=== PATIENT | female | born 1930 | race Caucasian/White ===

== ENCOUNTER 2016-10-29 15:42 | Emergency (ER) | payer OTHER ==
--- NOTE | 2016-10-29 16:52 | PROVIDER DOCUMENTATION ---
HPI-Musculoskeletal Pain/Inj - GENERAL Source: family Unable to obtain history due to:: altered (due to dementia) - HX OF PRESENT ILLNESS-MUSKULOSKELTAL Quality of Pain: reports: dull Severity in ED: mild Onset/Duration: unsure, this morning Timing: still present, constant Modifying Factors: worse with: movement Locality of Occurance: Home Similar Symptoms Previously?: Yes Recently seen or treated by another doctor?: No - FALL INJURY Location of Pain/Injury: reports: pelvis Pain Radiation: reports: no radiation Reason for Fall: reports: unknown Symptoms prior to fall:: reports: none Loss of Consciousness: unsure Injury Associated Symptoms: reports: joint pain, trouble walking. denies: back/ neck pain, chest pain, dizziness, muscle aches, shortness of breath, snap/crack/ pop sensation <Sukhwinder Shannon - Last Filed: 10/29/16 16:48> <Payal Plata - Last Filed: 10/29/16 18:33> - GENERAL Chief Complaint: Fall Stated Complaint: FALL Time Seen by Provider: 10/29/16 16:34 - HX OF PRESENT ILLNESS-MUSKULOSKELTAL Nature of Presenting Problem: patient is a 86 y/o F that presents to the ER with pelvic pain after being found in the floor this am by family. 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 Patient denies any chest pain, shortness of breath, headache, or n/v/d. Patient was able to get up from wheelchair to bed. (Sukhwinder Shannon) Review of Systems - Adult - REVIEW OF SYSTEMS - ADULT ROS:: ROS per family Constitutional: denies: chills, fever Eyes: reports: no symptoms reported Ears, Nose, Mouth & Throat: denies: sinus problem, loose teeth, mouth/dental pain, throat pain, throat swelling Cardiovascular: denies: chest pain, palpitations, syncope Respiratory: denies: hemoptysis, shortness of breath, wheezing Gastrointestinal: denies: abdominal pain, nausea, vomiting Genitourinary: reports: no symptoms reported Musculoskeletal: reports: joint pain. denies: back pain, neck pain Integumentary: reports: no symptoms reported Neurological: denies: dizziness/vertigo, headache/migraines, seizure, syncope Psychiatric: reports: no symptoms reported Endocrine: reports: no symptoms reported Hematologic/Lymphatic: reports: no symptoms reported Allergic/Immunologic: reports: no symptoms reported All Other Systems: Reviewed and Negative <Sukhwinder Shannon - Last Filed: 10/29/16 16:48> Past History - Adult - PAST MEDICAL HISTORY-ADULT Review of Records: reports: Old Records Reviewed, Nursing Assessment Review, Medications Reviewed Cardiovascular: reports: A-Fib, HTN Gastrointestinal: reports: GERD Neurological: reports: stroke deficits (left arm weakness, left leg weakness), dementia. denies: headaches/migraines Endocrine/Immune: reports: thyroid disorder Other Conditions: reports: denies history - PRIOR SURGERIES/PROCEDURES Surgical/Procedure History: reports: appendectomy, cholecystectomy, hysterectomy , orthopedic (extremity) - PRIOR HOSPITALIZATIONS Prior Hospitalizations: reports: for other non-related - IMMUNIZATION STATUS Childhood Immunizations: See Nurse Assessment Flu Vaccine: See Nurse Assessment - FAMILY HISTORY Family History: reviewed, not pertinent, gallbladder disease - SOCIAL HISTORY Living Situation: family <Sukhwinder Shannon - Last Filed: 10/29/16 16:48> Physical Exam-Injury Related - Physical Exam-Injury Related Initial Vital Signs Reviewed: Yes General Appearance: alert, no apparent distress Eyes: PERRL/EOMI, pink conjunctivae Head, Ears, Nose, Mouth & Throat: normocephalic/atraumatic, moist mucous membranes, normal ENT inspection Neck: non-tender, full range of motion, normal inspection Respiratory: chest non-tender, lungs clear, normal breath sounds, no respiratory distress, no accessory muscle use Cardiovascular: regular rate, rhythm, no edema, no murmur Abdominal Exam: normal bowel sounds, non tender, soft, no organomegaly, no pulsatile mass Back Exam: no CVA tenderness, no vertebral tenderness Extremity: normal inspection, no pedal edema, no calf tenderness, normal capillary refill, pelvis stable Integumentary: normal color, warm/dry Neurologic: grossly normal, no motor/sensory deficits Psych/Mental Status: other (oriented to person, but not time,place, or president ). 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 No fx identified per Dr. Bernard, radiology) <Payal Plata - Last Filed: 10/29/16 18:33> - PLAN OF CARE/RESULTS Progress/Plan/Lab Results: Vital Signs Temp Pulse Resp BP Pulse Ox 10/29/16 15:51 99.5 F 84 16 148/062 99 codeine Allergy (Unknown, Verified 10/29/16 15:56) Unknown fish derived Adverse Reaction (Unknown, Verified 10/29/16 15:56) Unknown Donepezil [Aricept] 10 mg PO DAILY 12/19/14 Levothyroxine [Synthroid] 50 mcg PO DAILY 12/19/14 Memantine HCl [Namenda Xr] 28 mg PO DAILY 12/19/14 Pravastatin Sodium 80 mg PO QHS 12/19/14 Solifenacin Succinate [Vesicare] 10 mg PO DAILY 08/15/15 Montelukast Sodium 1 tab PO DAILY 10/19/15 Amlodipine Besylate [Norvasc] 2.5 mg PO DAILY #30 tablet 10/24/15 Apixaban [Eliquis] 5 mg PO BID #60 tablet 10/24/15 Esomeprazole [Nexium] 40 mg PO DAILY 12/31/15 Lactulose [Kristalose] 1 packet PO DAILY 12/31/15 Sotalol [Betapace] 40 mg PO BID 12/31/15 Oxycodone HCl/Acetaminophen [Percocet 5-325 mg Tablet] 1 each PO BID #10 tablet 03/22/16 Levofloxacin [Levaquin] 750 mg PO DAILY #10 tablet 05/25/16 Metronidazole 500 mg PO TID #30 tablet 05/25/16 Promethazine [Phenergan] 25 mg PO Q6H PRN PRN #20 tablet 05/25/16 Laboratory 10/29/16 10/29/16 10/29/16 17:55 17:55 17:21 WBC RBC Hgb Hct MCV MCH MCHC RDW Std Deviation Plt Count MPV Immature Gran % (Auto) Neut % (Auto) Lymph % (Auto) [place] % (Auto) Eos % (Auto) Baso % (Auto) Immature Gran # (Auto) Neut # (Auto) Lymph # (Auto) [place] # (Auto) Eos # (Auto) Baso # (Auto) PT INR APTT (Factor Assay) Specimen Type ARTERIAL Sample Site R RADIAL pH 7.49 H pCO2 26 L pO2 93 HCO3 23.3 Base Excess -2.0 Oxyhemoglobin 95.7 ABG O2 Sat (Calculated) 18.6 ABG O2 Saturation 99.2 ABG Carboxyhemoglobin 2.00 ABG Methemoglobin 1.5 Cristi Test YES A-a O2 Difference 24.0 Total Hemoglobin 13.8 Lactate 1.00 Blood Gas Modality ROOM AIR FiO2 % 21.0 Sodium Potassium Chloride Carbon Dioxide Anion Gap BUN Creatinine Estimated GFR/1.73 m2 BUN/Creatinine Ratio Glucose Calculated Osmolality Calcium Total Bilirubin AST ALT Alkaline Phosphatase Creatine Kinase Creatine Kinase Index CK-MB (CK-2) Troponin T Total Protein Albumin Globulin Albumin/Globulin Ratio Plasma Lactate Urine Source CLEAN CATCH Urine Color YELLOW Urine Clarity VERY CLOUDY A Urine pH 6.5 Ur Specific [place] 1.015 Urine Protein TRACE A Urine Ketones 1+(Small) A Urine Blood 3+ A Urine Nitrite POSITIVE A Urine Bilirubin NEGATIVE Urine Urobilinogen NORMAL Urine Microscopic RBC 10-20 A Urine WBC 2+ A Urine Microscopic WBC TNTC A Ur Epithelial Cells <10 Urine Crystals NONE SEEN Urine Bacteria 3+ Urine Casts NONE SEEN Urine Yeast NONE SEEN Urine Glucose NEGATIVE Urine Opiates Screen NONE DETECTED Ur Oxycodone Screen NONE DETECTED Urine Methadone Screen NONE DETECTED Ur Barbituates Screen NONE DETECTED Ur Tricyclics Screen NONE DETECTED Ur Phencyclidine Scrn NONE DETECTED Ur Amphetamines Screen NONE DETECTED U Methamphetamines Scrn NONE DETECTED Urine MDMA Screen NONE DETECTED U Benzodiazepines Scrn NONE DETECTED Urine Cocaine Screen NONE DETECTED U Cannabinoids Screen NONE DETECTED Plasma/Serum Ethyl Alc 10/29/16 10/29/16 10/29/16 16:56 16:56 16:56 WBC 10.61 RBC 4.85 Hgb 13.2 Hct 40.8 MCV 84.1 MCH 27.2 MCHC 32.4 L RDW Std Deviation 14.0 Plt Count 249 MPV 8.7 Immature Gran % (Auto) 0.3 Neut % (Auto) 65.1 Lymph % (Auto) 18.9 L [place] % (Auto) 14.1 H Eos % (Auto) 1.5 Baso % (Auto) 0.1 Immature Gran # (Auto) 0.03 Neut # (Auto) 6.91 H Lymph # (Auto) 2.00 [place] # (Auto) 1.50 H Eos # (Auto) 0.16 Baso # (Auto) 0.01 PT 14.6 INR 1.11 APTT (Factor Assay) 30.1 Specimen Type Sample Site pH pCO2 pO2 HCO3 Base Excess Oxyhemoglobin ABG O2 Sat (Calculated) ABG O2 Saturation ABG Carboxyhemoglobin ABG Methemoglobin Cristi Test A-a O2 Difference Total Hemoglobin Lactate Blood Gas Modality FiO2 % Sodium Potassium Chloride Carbon Dioxide Anion Gap BUN Creatinine Estimated GFR/1.73 m2 BUN/Creatinine Ratio Glucose Calculated Osmolality Calcium Total Bilirubin AST ALT Alkaline Phosphatase Creatine Kinase 516 H Creatine Kinase Index 0.5 CK-MB (CK-2) 2.38 Troponin T Total Protein Albumin Globulin Albumin/Globulin Ratio Plasma Lactate Urine Source Urine Color Urine Clarity Urine pH Ur Specific [place] Urine Protein Urine Ketones Urine Blood Urine Nitrite Urine Bilirubin Urine Urobilinogen Urine Microscopic RBC Urine WBC Urine Microscopic WBC Ur Epithelial Cells Urine Crystals Urine Bacteria Urine Casts Urine Yeast Urine Glucose Urine Opiates Screen Ur Oxycodone Screen Urine Methadone Screen Ur Barbituates Screen Ur Tricyclics Screen Ur Phencyclidine Scrn Ur Amphetamines Screen U Methamphetamines Scrn Urine MDMA Screen U Benzodiazepines Scrn Urine Cocaine Screen U Cannabinoids Screen Plasma/Serum Ethyl Alc 10/29/16 10/29/16 10/29/16 16:56 16:56 16:56 WBC RBC Hgb Hct MCV MCH MCHC RDW Std Deviation Plt Count MPV Immature Gran % (Auto) Neut % (Auto) Lymph % (Auto) [place] % (Auto) Eos % (Auto) Baso % (Auto) Immature Gran # (Auto) Neut # (Auto) Lymph # (Auto) [place] # (Auto) Eos # (Auto) Baso # (Auto) PT INR APTT (Factor Assay) Specimen Type Sample Site pH pCO2 pO2 HCO3 Base Excess Oxyhemoglobin ABG O2 Sat (Calculated) ABG O2 Saturation ABG Carboxyhemoglobin ABG Methemoglobin Cristi Test A-a O2 Difference Total Hemoglobin Lactate Blood Gas Modality FiO2 % Sodium Potassium Chloride Carbon Dioxide Anion Gap BUN Creatinine Estimated GFR/1.73 m2 BUN/Creatinine Ratio Glucose Calculated Osmolality Calcium Total Bilirubin AST ALT Alkaline Phosphatase Creatine Kinase Creatine Kinase Index CK-MB (CK-2) Troponin T < 0.010 Total Protein Albumin Globulin Albumin/Globulin Ratio Plasma Lactate 1.1 Urine Source Urine Color Urine Clarity Urine pH Ur Specific [place] Urine Protein Urine Ketones Urine Blood Urine Nitrite Urine Bilirubin Urine Urobilinogen Urine Microscopic RBC Urine WBC Urine Microscopic WBC Ur Epithelial Cells Urine Crystals Urine Bacteria Urine Casts Urine Yeast Urine Glucose Urine Opiates Screen Ur Oxycodone Screen Urine Methadone Screen Ur Barbituates Screen Ur Tricyclics Screen Ur Phencyclidine Scrn Ur Amphetamines Screen U Methamphetamines Scrn Urine MDMA Screen U Benzodiazepines Scrn Urine Cocaine Screen U Cannabinoids Screen Plasma/Serum Ethyl Alc 10/29/16 16:56 WBC RBC Hgb Hct MCV MCH MCHC RDW Std Deviation Plt Count MPV Immature Gran % (Auto) Neut % (Auto) Lymph % (Auto) [place] % (Auto) Eos % (Auto) Baso % (Auto) Immature Gran # (Auto) Neut # (Auto) Lymph # (Auto) [place] # (Auto) Eos # (Auto) Baso # (Auto) PT INR APTT (Factor Assay) Specimen Type Sample Site pH pCO2 pO2 HCO3 Base Excess Oxyhemoglobin ABG O2 Sat (Calculated) ABG O2 Saturation ABG Carboxyhemoglobin ABG Methemoglobin Cristi Test A-a O2 Difference Total Hemoglobin Lactate Blood Gas Modality FiO2 % Sodium 139 Potassium 3.5 Chloride 105 Carbon Dioxide 23 L Anion Gap 12 BUN 14 Creatinine 0.9 Estimated GFR/1.73 m2 60 BUN/Creatinine Ratio 16 Glucose 100 Calculated Osmolality 278 Calcium 9.3 Total Bilirubin 0.70 AST 22 ALT 9 L Alkaline Phosphatase 62 Creatine Kinase Creatine Kinase Index CK-MB (CK-2) Troponin T Total Protein 7.1 Albumin 3.9 Globulin 3.0 Albumin/Globulin Ratio 1.0 Plasma Lactate Urine Source Urine Color Urine Clarity Urine pH Ur Specific [place] Urine Protein Urine Ketones Urine Blood Urine Nitrite Urine Bilirubin Urine Urobilinogen Urine Microscopic RBC Urine WBC Urine Microscopic WBC Ur Epithelial Cells Urine Crystals Urine Bacteria Urine Casts Urine Yeast Urine Glucose Urine Opiates Screen Ur Oxycodone Screen Urine Methadone Screen Ur Barbituates Screen Ur Tricyclics Screen Ur Phencyclidine Scrn Ur Amphetamines Screen U Methamphetamines Scrn Urine MDMA Screen U Benzodiazepines Scrn Urine Cocaine Screen U Cannabinoids Screen Plasma/Serum Ethyl Alc Orders Category Date Time Status Cardiac Monitoring DIRECTED Care 10/29/16 16:44 Active Finger Stick Blood Sugar (ED) DIRECTED Care 10/29/16 16:44 Active Oxygen Therapy- ED Nursing DIRECTED Care 10/29/16 16:44 Active Saline Loc NOW Care 10/29/16 16:44 Active CHEST-PORTABLE [RAD] Stat Exams 10/29/16 16:44 Taken HEAD W/O CONTRAST [CT] Stat Exams 10/29/16 16:44 Taken PELVIS W/O CONTRAST [CT] Stat Exams 10/29/16 16:46 Taken ABG [RESP] Routine Lab 10/29/16 17:21 Completed ALCOHOL BLOOD Stat Lab 10/29/16 16:56 Completed BLOOD CULTURE [BLDCUL] Stat Lab 10/29/16 17:04 Ordered CBC WITH ELECTRONIC DIFF [HEME] Stat Lab 10/29/16 16:56 Completed CK PROFILE [SP CHEM] Stat Lab 10/29/16 16:56 Completed COMPREHENSIVE METABOLIC PANEL [CHEM] Stat Lab 10/29/16 16:56 Completed LACTATE, PLASMA [CHEM] Stat Lab 10/29/16 16:56 Completed PROTIME WITH INR PL [COAG] Stat Lab 10/29/16 16:[address] [COAG] Stat Lab 10/29/16 16:56 Completed TROPONIN T Stat Lab 10/29/16 16:[address] W/POSS RFLX CULT [URINALYSIS] Stat Lab 10/29/16 17:55 Completed URINE CULTURE [RM] Routine Lab 10/29/16 18:11 Ordered [address] DRUG SCREEN [address] Stat Lab 10/29/16 17:55 Completed Acetaminophen [Tylenol] Med 10/29/16 18:29 Discontinued 500 mg PO NOW ONE CefTRIAXONE 1 GM/NS [Rocephin 1 gm/Ns] 50 ml Med 10/29/16 18:13 Active IV NOW Pulse Oximetry Stat Oth 10/29/16 16:44 Active EKG [EKG] Stat Ther 10/29/16 16:44 Draft Discussed results with family member who she lives. with. patient has ambulated since being here. Sydnee family member prefers that she go home with her tonight, and not be admitted to the hospital. We will write orders or a walker, and have her follow up with the primary care physician. patient and daughter are in agreement. (Payal Plata) Departure <Sukhwinder Shannon - Last Filed: 10/29/16 16:48> - Departure Time of Disposition Order: 18:31 Certified Medical Emergency: Emergent <Payal Plata - Last Filed: 10/29/16 18:33> - Departure DIAGNOSIS: Acute UTI Fall Qualifiers: Encounter type: initial encounter Qualified Code(s): W19.XXXA - Unspecified fall, initial encounter Contusion of coccyx Qualifiers: Encounter type: initial encounter Qualified Code(s): S30.0XXA - Contusion of lower back and pelvis, initial encounter Disposition: HOME 01 Condition: Stable Additional Instructions: Follow up with you primary care physician this week. ED Follow Up Instructions: You have been treated by a care provider in the Emergency Department. These instructions are being provided to you so you can have an understanding of how to care for yourself upon discharge. Upon discharge from the Emergency Department, you are responsible for making arrangements for follow-up care by a physician of your choice. Take all prescribed medications as directed. Return to the Emergency Department immediately for any new or worsening symptoms. You may call the Physician Referral phone number at [phone] to obtain a list of Physicians who are taking new patients. Prescriptions: Nitrofurantoin [place]/Macrocryst [Macrobid] 100 mg PO BID #20 capsule Walker [Ultra-Light Rollator] 1 each MC DIRECTED #1 each Attestation - Scribe Verification/Attestation Scribe:: Sukhwinder Shannon Acting as Scribe for:: Payal Plata Scribe documention review:: This chart was documented by a scribe and accurately reflects the service the provider performed and the decisions made by the provider. - Physician/ Mid-level Attestation Patient care was provided by Mid-level provider (SR. STRATEGIC SOURCING MANAGER/PA):: Yes Mid-level provider:: Payal Plata Mid-level documentation review:: The Mid-level provider documentation, treatment plan and medical decision making was reviewed by the physician who agrees with all treatment and medical decision making by the MLP. <Sukhwinder Shannon - Last Filed: 10/29/16 16:48> Physician Attestation
[2016-10-29 17:06] LABS: MANUAL DIFF NEEDED? NO
[2016-10-29 17:09] LABS: BASO% 0.1 % (0.0-0.8); EOS# 0.16 X1000 (0.0-0.7); EOS% 1.5 % (0.0-10.0); HEMATOCRIT 40.8 % (37.0-47.0); HEMOGLOBIN 13.2 g/dL (12.0-16.0); IMM GRAN# 0.03 X1000 (0.0-0.04); IMM GRAN% 0.3 % (0.0-0.5); LYMPH% 18.9 % (20.5-51.1); MCH 27.2 PG (27-31); MCHC 32.4 g/dL (33-37); MCV 84.1 FL (81-99); MONO% 14.1 % (1.7-9.3); MPV 8.7 FL (7.4-10.4); NEUT% 65.1 % (42.2-75.2); PLT 249 X1000 (130-400); RBC 4.85 XMIL (4.2-5.4)
[2016-10-29 17:24] LABS: INR 1.11 (0.86-1.15); PROTIME 14.6 Seconds (12.1-15.5)
[2016-10-29 17:25] LABS: PTT PL 30.1 Seconds (22.6-43.9)
[2016-10-29 17:33] LABS: ALBUMIN 3.9 g/dL (3.5-5.0); CALCIUM 9.3 mg/dL (8.8-10.2); POTASSIUM 3.5 mmol/L (3.5-5.1); TOTAL BILIRUBIN 0.7 mg/dL (0.20-1.00); TOTAL PROTEIN 7.1 g/dL (6.3-8.3)
[2016-10-29 17:35] LABS: BLOOD TYPE ARTERIAL; DRAW SITE R RADIAL; METHB 1.5 % (0.0-1.5); O2(CT) 18.6 mL/dL (15.0-23.0); PCO2(98.6) 26 mmHg (35-45); PO2(98.6) 93 mmHg (60-100); SAMPLE BLOOD; SAO2 99.2 % (95.0-100.0); THB 13.8 g/dL (11.5-17.4); pH(98.6) 7.49 (7.35-7.45)
--- NOTE | 2016-10-29 17:35 | ED EKG INTERP ---
EKG Interpretation - EKG Time of EKG reading by physician:: 17:12 EKG Read and Signed by:: Robin Hammond EKG Interpretation (*Must complete 3 of following elements*): Abnormal Rate: 74 Rhythm: NSR Cunningham: normal QRS: normal ST Wave: non-specific ST changes
[2016-10-29 17:39] LABS: ALLEN TEST YES; MODALITY ROOM AIR
--- NOTE | 2016-10-29 17:43 | EKG Report ---
Test Performed on : 10/29/2016 5:12:19 PM Test Reason : AMS Blood Pressure : / mmHG Vent. Rate : 074 BPM Atrial Rate : 074 BPM P-R Int : 112 ms QRS Dur : 106 ms QT Int : 446 ms P-R-T Axes : 081 078 075 degrees QTc Int : 495 ms Normal sinus rhythm. with sinus arrhythmia. Nonspecific ST abnormality Prolonged QT Abnormal ECG When compared with ECG of 22-MAR-2016 09:00, ST no longer depressed in Anterior leads Unconfirmed Result
[2016-10-29 17:57] LABS: URINE SOURCE CLEAN CATCH
[2016-10-29 17:59] LABS: CK INDEX 0.5 (0.0-2.5); CK-MB 2.38 ng/mL (0.0-5.0)
[2016-10-29 18:05] LABS: UR AMPHETAMINES QUAL NONE DETECTED (NONE DETECT); UR BARBITUATES QUAL NONE DETECTED (NONE DETECT); UR BENZODIAZEPIN QUAL NONE DETECTED (NONE DETECT); UR CANNABINOIDS QUAL NONE DETECTED (NONE DETECT); UR COCAINE QUAL NONE DETECTED (NONE DETECT); UR MDMA QUAL NONE DETECTED (NONE DETECT); UR METHADONE QUAL NONE DETECTED (NONE DETECT); UR METHAMPHETAMINE QUAL NONE DETECTED (NONE DETECT); UR OPIATES QUAL NONE DETECTED (NONE DETECT); UR OXYCODONE QUAL NONE DETECTED (NONE DETECT); UR PCP QUAL NONE DETECTED (NONE DETECT); UR TCA QUAL NONE DETECTED (NONE DETECT)
[2016-10-29 18:09] LABS: BILIRUBIN URINE NEGATIVE (NEGATIVE); BLOOD URINE 3+ (NEGATIVE); CLARITY VERY CLOUDY (CLEAR); COLOR YELLOW; GLUCOSE URINE NEGATIVE (NEGATIVE); LEUKOCYTES URINE 2+ (NEGATIVE); NITRITE URINE POSITIVE (NEGATIVE); PH URINE 6.5; PROTEIN URINE TRACE mg/dL (NEGATIVE); SP GRAVITY URINE 1.015; UROBILINOGEN URINE NORMAL
[2016-10-29 18:10] LABS: URINE CULTURE PL NEEDED? YES; URINE EPITHELIAL CELLS <10 /HPF (<10); URINE WBC TNTC /HPF (<10)
[2016-10-29 18:11] LABS: URINE CAST NONE SEEN /LPF; URINE CRYSTAL NONE SEEN /HPF
[2016-10-29] MEDS ORDERED: ROCEPHIN 1 GM/NS 50 ML IV ONE (18:13)
[2016-10-29] MEDS ORDERED: TYLENOL PO ONE (18:29)
[2016-10-29 18:44] VITALS: BP 153/078
--- NOTE | 2016-10-30 07:46 | Diag Imaging Result Document ---
PROCEDURE NAME: PELVIS W/O CONTRAST - 10/29/2016 CT BONY PELVIS WITHOUT CONTRAST: TECHNIQUE: A dose reduction protocol was used. Axial and coronal images are obtained. FINDINGS: The bones are possibly osteopenic. There is no fracture identified. There is no hip dislocation seen. There are lower lumbar spine degenerative changes noted, including some apparent spinal stenosis at L4-5. The rectum is mildly distended with retained fecal debris. IMPRESSION: Possible osteopenia. No evidence of fracture. No hip dislocation. Lower lumbar spine degenerative changes, with apparent L4-5 spinal stenosis, noted. The rectum is mildly distended with retained fecal debris. The on-call radiologist provided preliminary results at 6:20 p.m. on 10/29/2016.
--- NOTE | 2016-10-30 07:48 | Diag Imaging Result Document ---
PROCEDURE NAME: HEAD W/O CONTRAST - 10/29/2016 CT HEAD WITHOUT CONTRAST: TECHNIQUE: A dose reduction protocol was used. Compared with 03/22/2016. FINDINGS: There are atrophic changes and substantial chronic microvascular ischemic changes similar to the previous exam. There is no indication of recent infarct, although acute infarcts may not be immediately visible. There is no evidence of intracranial hemorrhage, mass effect, or midline shift. There is no skull fracture. IMPRESSION: Atrophic changes and chronic microvascular ischemic changes similar to prior. No visible acute process. No evidence of intracranial injury. The on-call radiologist provided preliminary results at 6:20 p.m. on 10/29/2016.
--- NOTE | 2016-10-30 07:50 | Diag Imaging Result Document ---
PROCEDURE NAME: CHEST-PORTABLE - 10/29/2016 PORTABLE CHEST: Compared with 05/25/2016. FINDINGS: Heart size is normal. There is stable mild tortuosity of the thoracic aorta. There are possibly mild COPD changes. There are left apical calcified granulomas from old granulomatous disease which are stable. There are no acute changes identified. There is no consolidation, pleural effusion, or pneumothorax identified. IMPRESSION: No evidence of acute disease.
== END 2016-10-29 19:11 | disposition home or self-care (01) ==
LOC: P.ED 15:42
DX: S30.0XXA Contusion of lower back and pelvis, initial encounter (principal); N39.0 Urinary tract infection, site not specified; R10.2 Pelvic and perineal pain; I48.91 Unspecified atrial fibrillation; I10 Essential (primary) hypertension; K21.9 Gastro-esophageal reflux disease without esophagitis; I69.854 Hemiplegia and hemiparesis following other cerebrovascular disease affecting left non-dominant side; F03.90 Unspecified dementia, unspecified severity, without behavioral disturbance, psychotic disturbance, mood disturbance, and anxiety; Z79.899 Other long term (current) drug therapy; E07.9 Disorder of thyroid, unspecified; M25.50 Pain in unspecified joint; W19.XXXA Unspecified fall, initial encounter; Z79.01 Long term (current) use of anticoagulants
CPT/HCPCS: 70450; 71010; 72192; 80053; 81001; 82550; 82553; 82805; 83605; 84484; 85025; 85610; 85730; 87040; 87077; 87088; 87186; 93005; 96365; G0480; J0696

== ENCOUNTER 2016-11-02 18:55 | Emergency (ER) | payer OTHER ==
[2016-11-02 19:15] VITALS: BP 136/53
--- NOTE | 2016-11-02 19:55 | PROVIDER DOCUMENTATION ---
HPI-Musculoskeletal Pain/Inj - GENERAL Chief Complaint: Generalized Pain Stated Complaint: HERE ON 8TH FOR FALL STILL HAVE PAIN Time Seen by Provider: 11/02/16 19:08 Source: family - HX OF PRESENT ILLNESS-MUSKULOSKELTAL Nature of Presenting Problem: Daughter states that she fell last week and was seen here. Imaging was done with no fractures found. PT c/o pain in lower back and coccyx. PT can not get in to see PCP until Sunday. PT has been taking x2 325 mg Arthritis strength Ibuprofen. Quality of Pain: reports: aching Severity in ED: mild Onset/Duration: 4 days ago Timing: still present Modifying Factors: improves with: nothing Any recent injury?: Yes (fall 4 days ago) Locality of Occurance: Home Similar Symptoms Previously?: Yes Recently seen or treated by another doctor?: Yes - FALL INJURY Location of Pain/Injury: reports: back, pelvis Pain Radiation: reports: no radiation Symptoms prior to fall:: reports: none Loss of Consciousness: no loss of consciousness Injury Associated Symptoms: reports: back/neck pain Review of Systems - Adult - REVIEW OF SYSTEMS - ADULT Constitutional: reports: no symptoms reported Eyes: reports: no symptoms reported Ears, Nose, Mouth & Throat: reports: no symptoms reported Cardiovascular: reports: no symptoms reported Respiratory: reports: no symptoms reported Gastrointestinal: denies: nausea, vomiting Genitourinary: denies: dysuria, hematuria Musculoskeletal: reports: back pain, muscle aches. denies: muscle weakness Integumentary: denies: skin sores/ulcer, skin thickening Neurological: reports: no symptoms reported Psychiatric: reports: no symptoms reported Endocrine: reports: no symptoms reported Hematologic/Lymphatic: reports: no symptoms reported Allergic/Immunologic: reports: no symptoms reported All Other Systems: Reviewed and Negative Past History - Adult - PAST MEDICAL HISTORY-ADULT Review of Records: reports: Nursing Assessment Review, Medications Reviewed Cardiovascular: reports: A-Fib, HTN Gastrointestinal: reports: GERD Neurological: reports: stroke deficits (left arm weakness, left leg weakness), dementia. denies: headaches/migraines Endocrine/Immune: reports: thyroid disorder - PRIOR SURGERIES/PROCEDURES Surgical/Procedure History: reports: appendectomy, cholecystectomy, hysterectomy , orthopedic (extremity) - PRIOR HOSPITALIZATIONS Prior Hospitalizations: reports: for other non-related - IMMUNIZATION STATUS Childhood Immunizations: See Nurse Assessment Flu Vaccine: See Nurse Assessment - FAMILY HISTORY Family History: reviewed, not pertinent, gallbladder disease - SOCIAL HISTORY Smoking: non-smoker Substance Use: none/never Alcohol Use Frequency: never Physical Exam-Injury Related - Physical Exam-Injury Related Initial Vital Signs Reviewed: Yes General Appearance: appears well, alert, no apparent distress Respiratory: no respiratory distress Cardiovascular: regular rate, rhythm Back Exam: other (sacral and coccyx tenderness) Integumentary: normal color, warm/dry Psych/Mental Status: AL, normal mood/affect, normal thought content, normal thought process, oriented x 3 Progress - PLAN OF CARE/RESULTS Progress/Plan/Lab Results: Orders Category Date Time Status Hydrocodone/APAP 5 mg/325 mg [Noxon-5] Med 11/02/16 20:00 Once 1 each PO NOW ONE Vital Signs - 24 hr 11/02/16 19:07 Temperature 97.7 F Pulse Rate 71 Respiratory 20 Rate Blood Pressure 136/53 O2 Sat by Pulse 97 Oximetry Pt given results and will be d/c home w/ rx to follow up with PCP. Pt verbally understood instructions. PT remained clinically stable throughout the course of the ED stay and will return if symptoms worsen. Departure - Departure Time of Disposition Order: 20:00 DIAGNOSIS: Sacral contusion Qualifiers: Encounter type: subsequent encounter Qualified Code(s): S30.0XXD - Contusion of lower back and pelvis, subsequent encounter Disposition: HOME 01 Certified Medical Emergency: Emergent Condition: Good Additional Instructions: Follow up with primary care doctor. Return to ED for any new or worsening symptoms. ED Follow Up Instructions: You have been treated by a care provider in the Emergency Department. These instructions are being provided to you so you can have an understanding of how to care for yourself upon discharge. Upon discharge from the Emergency Department, you are responsible for making arrangements for follow-up care by a physician of your choice. Take all prescribed medications as directed. Return to the Emergency Department immediately for any new or worsening symptoms. You may call the Physician Referral phone number at [phone] to obtain a list of Physicians who are taking new patients. Prescriptions: Hydrocodone/Acetaminophen [Noxon 5-325 Tablet] 1 each PO Q4-6H PRN PRN #20 tablet PRN Reason: Pain Referrals: Chelsea Mendosa MD [Primary Care Provider] - Forms: Return to School/Parent Work Attestation - Scribe Verification/Attestation Scribe:: Liliana Duggan Acting as Scribe for:: Deandre Arriola Scribe documention review:: This chart was documented by a scribe and accurately reflects the service the provider performed and the decisions made by the provider. Physician Attestation - Physician Attestation I, the provider, attest to the following statement:: Deandre Arriola Physician documentation Attestation:: This documentation recorded by the scribe accurately reflects the service I personally performed and the decisions made by me.
[2016-11-02] MEDS ORDERED: NORCO-5 PO ONE (20:00)
== END 2016-11-02 20:35 | disposition home or self-care (01) ==
LOC: P.ED 18:55
DX: S30.0XXD Contusion of lower back and pelvis, subsequent encounter (principal); M53.3 Sacrococcygeal disorders, not elsewhere classified; M54.5 Low back pain; M79.1 Myalgia; I48.91 Unspecified atrial fibrillation; I10 Essential (primary) hypertension; K21.9 Gastro-esophageal reflux disease without esophagitis; I69.854 Hemiplegia and hemiparesis following other cerebrovascular disease affecting left non-dominant side; Z79.899 Other long term (current) drug therapy; F03.90 Unspecified dementia, unspecified severity, without behavioral disturbance, psychotic disturbance, mood disturbance, and anxiety; E07.9 Disorder of thyroid, unspecified; Z79.01 Long term (current) use of anticoagulants
CPT/HCPCS: 99282

== ENCOUNTER 2017-01-16 19:31 | Inpatient (IN) ==
[2017-01-16] MEDS ORDERED: PROTONIX IV ONE (20:23)
[2017-01-16] MEDS ORDERED: SODIUM CHLORIDE 0.9% INJ ONE (20:23)
[2017-01-16] MEDS ORDERED: NS 1,000 ML IV PRN (20:23)
--- NOTE | 2017-01-16 20:36 | PROVIDER DOCUMENTATION ---
HPI-Abdominal Pain/GI Problem - General Source: family - History of Present Illness-ABD Nature of Presenting Problems: 86 Y/O F presents to ED with GI Bleed. Pt was brought in by EMS from [facility]. Pt has a hx of rectal bleeding and was admitted to the hospital on 12/30/2016 for rectal bleeding with similar symptoms. Family states hx of constipation and blockages, and colon issues. Pt has a hx of dementia. Abdominal Pain Onset Location: reports: generalized abdomen Pain Radiation: reports: no radiation Severity in ED: reports: moderate Onset/Duration: reports: this evening Timing: reports: still present Associated Symptoms: reports: diarrhea, genitourinary problems <Mary Carranza - Last Filed: 01/17/17 01:50> <Satinder Mann I - Last Filed: 01/17/17 01:55> - General Chief Complaint: GI Bleed Stated Complaint: possible lower gi bleed Time Seen by Provider: 01/16/17 19:59 Allergies/Adverse Reactions: Patient Allergies Allergy/AdvReac Type Severity Reaction Status Date / Time codeine Allergy Unknown Unknown Verified 11/09/16 14:51 fish derived AdvReac Unknown Unknown Verified 11/09/16 14:51 Home Medications: Home Medication List Medication Instructions Recorded Confirmed Last Taken Type Donepezil [Aricept] 10 mg PO DAILY 12/19/14 11/09/16 10/18/15 History Levothyroxine [Synthroid] 50 mcg PO DAILY 12/19/14 11/09/16 10/19/15 History Memantine HCl [Namenda Xr] 28 mg PO DAILY 12/19/14 11/09/16 10/19/15 History Pravastatin Sodium 80 mg PO QHS 12/19/14 11/09/16 10/18/15 History Solifenacin Succinate [Vesicare] 10 mg PO DAILY 08/15/15 11/09/16 10/19/15 History Amlodipine Besylate [Norvasc] 2.5 mg PO DAILY #30 tablet 10/24/15 11/09/16 Unknown Rx Apixaban [Eliquis] 5 mg PO BID #60 tablet 10/24/15 11/09/16 10/19/15 Rx Esomeprazole [Nexium] 40 mg PO DAILY 12/31/15 11/09/16 Unknown History Sotalol [Betapace] 40 mg PO BID 12/31/15 11/09/16 Unknown History Walker [Ultra-Light Rollator] 1 each [facility] DIRECTED #1 each 10/29/16 11/09/16 Unknown Rx Montelukast Sodium [Singulair] 10 mg PO QAM 11/09/16 11/09/16 Unknown History Diltiazem C.d. [Cardizem Cd] 180 mg PO DAILY #60 capsule 11/16/16 Unknown Rx Lactobacillus Rhamnosus GG 1 each PO DAILY #30 capsule 11/16/16 Unknown Rx [Culturelle] Metronidazole [Flagyl] 500 mg PO Q6H #21 tablet 11/16/16 Unknown Rx Review of Systems - Adult - REVIEW OF SYSTEMS - ADULT Constitutional: denies: chills, fever Eyes: reports: no symptoms reported Ears, Nose, Mouth & Throat: reports: no symptoms reported Cardiovascular: denies: chest pain Respiratory: reports: no symptoms reported Gastrointestinal: reports: rectal bleeding. denies: abdominal pain Genitourinary: reports: no symptoms reported Musculoskeletal: reports: no symptoms reported Integumentary: reports: no symptoms reported Neurological: reports: no symptoms reported Psychiatric: reports: no symptoms reported Endocrine: reports: no symptoms reported Hematologic/Lymphatic: reports: no symptoms reported Allergic/Immunologic: reports: no symptoms reported All Other Systems: Reviewed and Negative <Mary Carranza - Last Filed: 01/17/17 01:50> Past History - Adult - PAST MEDICAL HISTORY-ADULT Review of Records: reports: Old Records Reviewed, Nursing Assessment Review, Medications Reviewed, Social history reviewed & non-contributory. Major Childhood Illnesses: reports: denies history Cardiovascular: reports: A-Fib, HTN Respiratory: reports: denies history Gastrointestinal: reports: GERD Obstetrical/Gynecological: reports: denies history Genitourinary: reports: denies history Musculoskeletal: reports: denies history Neurological: reports: CVA, stroke deficits (left arm weakness, left leg weakness), dementia. denies: headaches/migraines Endocrine/Immune: reports: thyroid disorder Other Conditions: reports: denies history - PRIOR SURGERIES/PROCEDURES Surgical/Procedure History: reports: appendectomy, cholecystectomy, hysterectomy , orthopedic (extremity) - PRIOR HOSPITALIZATIONS Prior Hospitalizations: reports: for other non-related - IMMUNIZATION STATUS Childhood Immunizations: See Nurse Assessment Flu Vaccine: See Nurse Assessment - FAMILY HISTORY Family History: reviewed, not pertinent, gallbladder disease - SOCIAL HISTORY Substance Use: none/never Alcohol Use Frequency: never Living Situation: care facility <Mary Carranza - Last Filed: 01/17/17 01:50> Physical Exam-General - CONSTITUTIONAL General Appearance: no apparent distress, lethargic. negative: alert - EYES Eyes: PERRL/EOMI, pink conjunctivae, fundi clear, no AV nicking - HEAD, EARS, NOSE, MOUTH & THROAT HENMT: normocephalic/atraumatic, TMs normal, pharynx normal. negative: moist mucous membranes - NECK Neck: non-tender, full range of motion, supple, normal inspection - RESPIRATORY Respiratory: chest non-tender, lungs clear, normal breath sounds - CARDIOVASCULAR Cardiovascular: normal peripheral pulses, regular rate, rhythm - GASTROINTESTINAL (ABDOMEN) Abdominal Exam: normal bowel sounds, non tender, soft - LYMPHATIC Lymphatic: no adenopathy - MUSCULOSKELETAL Back Exam: normal inspection, no CVA tenderness, no vertebral tenderness - PSYCHIATRIC Psych/Mental Status: normal mood/affect, normal thought content, normal thought process, oriented x 3 <Mary Carranza - Last Filed: 01/17/17 01:50> Progress - XRAY 1 XRAY Study: Abdomen Impression: Abnormal XRAY Interpretation: Excess stool, nonspecifc gas pattern - CONSULTS/PCP/HOSPITALIST Notification #1 *Consult/PCP/Hospitalist*: Dr. Dunn Time Discussed: 01:50 Reason/Comments: Admittance Consult Disposition: Admit (Admit Accepted) <Mary Carranza - Last Filed: 01/17/17 01:50> Departure <Mary Carranza - Last Filed: 01/17/17 01:50> - Departure Time of Disposition Order: 01:52 Certified Medical Emergency: Emergent <Satinder Mann I - Last Filed: 01/17/17 01:55> - Departure DIAGNOSIS: Dementia, GI bleed Disposition: ADMITTED INPATIENT 09 Condition: Stable Referrals: None,PCP [Primary Care Provider] - Attestation - Scribe Verification/Attestation Scribe:: Mary Carranza Acting as Scribe for:: Satinder Mann Scribe documention review:: This chart was documented by a scribe and accurately reflects the service the provider performed and the decisions made by the provider. <Mary Carranza - Last Filed: 01/17/17 01:50> - Physician/ SEAN Attestation Patient care was provided by Advanced Practice Provider:: Yes Advanced Practice Provider documentation review:: The Mid-level provider documentation, treatment plan and medical decision making was reviewed by the physician who agrees with all treatment and medical decision making by the MLP. The physician spent face to face time with patient:: Yes Advanced Practice Provider documentation review:: The physician spent face to face time with this patient and agrees with all MLP documentation, treatment, and medical decision making by the MLP. See provider notes for further information. <Satinder Mann I - Last Filed: 01/17/17 01:55> Physician Attestation - Physician Attestation I, the provider, attest to the following statement:: Satinder Mann Physician documentation Attestation:: This documentation recorded by the scribe accurately reflects the service I personally performed and the decisions made by me. <Satinder Mann I - Last Filed: 01/17/17 01:55>
[2017-01-16 20:38] LABS: MANUAL DIFF NEEDED? NO
[2017-01-16 20:43] LABS: BASO% 0.2 % (0.0-0.8); EOS% 0.8 % (0.0-10.0); HEMOGLOBIN 13.6 g/dL (12.0-16.0); IMM GRAN# 0.06 X1000 (0.0-0.04); IMM GRAN% 0.5 % (0.0-0.5); LYMPH# 2.15 X1000 (1.2-3.4); LYMPH% 17.6 % (20.5-51.1); MCH 27.6 PG (27-31); MCHC 33.2 g/dL (33-37); MCV 83.3 FL (81-99); MONO# 1.47 X1000 (0.11-0.59); MPV 8.8 FL (7.4-10.4); NEUT% 68.9 % (42.2-75.2); PLT 553 X1000 (130-400); RBC 4.92 XMIL (4.2-5.4)
[2017-01-16 20:54] LABS: INR 1.28; PROTIME 13.6 Seconds (9.2-11.7); PTT 31.4 Seconds (22.0-36.0)
[2017-01-16 21:13] LABS: ALBUMIN 2.8 g/dL (3.5-5.0); CALCIUM 8.5 mg/dL (8.8-10.2); POTASSIUM 4.5 mmol/L (3.5-5.1); TOTAL BILIRUBIN 0.48 mg/dL (0.20-1.00)
[2017-01-17] MEDS ORDERED: TYLENOL PO PRN (07:58)
[2017-01-17] MEDS ORDERED: ZOFRAN IV PRN (07:58)
[2017-01-17] MEDS ORDERED: PROTONIX IV SCH (07:58)
[2017-01-17] MEDS ORDERED: SODIUM CHLORIDE 0.9% INJ SCH (07:58)
[2017-01-17] MEDS ORDERED: VANCOCIN PO SCH (08:00)
--- NOTE | 2017-01-17 08:12 | Diag Imaging Result Document ---
PROCEDURE NAME: KUB ABDOMEN - 01/16/2017 AP PORTABLE KUB: FINDINGS: There is a fairly large amount of stool in the rectum. There is also formed stool in the transverse colon. There is less colonic and small bowel gas than on the previous study of 11/09/2016. IMPRESSION: Constipation.
[2017-01-17] MEDS: NS 1,000 ML IV SCH (09:00)
[2017-01-17] MEDS: NORVASC PO SCH (09:30)
[2017-01-17] MEDS: CARDIZEM CD PO SCH (09:30)
[2017-01-17] MEDS: CULTURELLE PO SCH (09:30)
[2017-01-17] MEDS: VANCOCIN PO SCH ×3 (09:30→20:29)
[2017-01-17] MEDS: BETAPACE PO SCH ×2 (09:30→20:29)
[2017-01-17] MEDS: SINGULAIR PO SCH (09:30)
[2017-01-17] MEDS: NAMENDA XR PO SCH (09:30)
--- NOTE | 2017-01-17 10:38 | Diag Imaging Result Document ---
PROCEDURE NAME: ABDOMEN/PELVIS W/O CONTRAST - 01/17/2017 CT ABDOMEN AND PELVIS WITHOUT CONTRAST: COMPARISON: CT bony pelvis dated 10/29/[address] abdomen and pelvis without contrast dated 07/12/2013. FINDINGS: There are vaguely nodular infiltrates at the lung bases, worst, at the right lung base where there appears to be a confluent nodule measuring up to 1.6 cm axially. This is probably an infectious process. However, followup is recommended with a repeat initial CT in 3 months based on Timothy Society criteria. There has been a previous cholecystectomy. There are a few calcified granulomata in the spleen. There is a moderate-sized rectal fecal impaction, and there is thickening of the wall of the rectum as well as the distal sigmoid colon with surrounding inflammatory changes consistent with proctitis/colitis. Consider stercoral colitis given the impaction. The remainder of the colon does not appear to be affected. There has been a previous hysterectomy. There is no obstructive bowel pattern. There is aortic atherosclerotic calcification but there is no evidence of aneurysm. The kidneys are essentially unremarkable. The remainder of the solid viscera of the abdomen and pelvis and the remainder of the GI tract is essentially unremarkable. IMPRESSION: 1. Evidence of a small rectal fecal impaction with significant rectal wall thickening and thickening involving the distal sigmoid colon and associated surrounding inflammatory changes consistent with colitis/proctitis. Consider stercoral colitis/proctitis given the impaction. 2. Nodular infiltrates at the lung bases, worst on the right. Please see above discussion. 3. Other incidental/nonacute findings detailed above. [facility]
[2017-01-17 10:47] LABS: URINE CULTURE NEEDED? NO; URINE MICRO REVIEW NEEDED? NO; URINE SOURCE CATH
--- NOTE | 2017-01-17 10:50 | Diag Imaging Result Document ---
PROCEDURE NAME: CHEST-PORTABLE - 01/17/2017 AP PORTABLE CHEST, 01/17/2017 AT 0958 HOURS: FINDINGS: The lung bases are clearer than on 11/09/2016. There are calcified granulomata in the left apex. Otherwise, there has been no significant change. IMPRESSION: No evidence of acute disease.
[2017-01-17 10:51] LABS: UR EPITHELIAL CELLS <10 /HPF (<10); URINE BACTERIA NEGATIVE /HPF; URINE RBC <10 /HPF (<10); URINE WBC <10 /HPF (<10)
[2017-01-17 10:52] LABS: BILIRUBIN URINE SMALL (NEGATIVE); BLOOD URINE NEGATIVE (NEGATIVE); COLOR YELLOW; GLUCOSE URINE NEGATIVE (NEGATIVE); LEUKOCYTES URINE NEGATIVE (NEGATIVE); NITRITE URINE NEGATIVE (NEGATIVE); PH URINE 5.5; PROTEIN URINE 30 mg/dL (NEGATIVE); SP GRAVITY URINE 1.026; TURBIDITY URINE CLEAR (CLEAR); UROBILINOGEN URINE 3 mg/dL (NORMAL)
[2017-01-17] MEDS ORDERED: QUESTRAN PO SCH (11:00)
--- NOTE | 2017-01-17 11:12 | HISTORY AND PHYSICAL ---
PRIMARY CARE PROVIDER: Dr. Lemuel Dexter at [facility]. DATE AND TIME OF HISTORY AND PHYSICAL: 01/17/2017 at 0430. CHIEF COMPLAINT: Bloody stools. HISTORY OF PRESENT ILLNESS: Ms. Cottrell is an 86-year-old female who was last admitted to the hospital in October of 2016. She was initially admitted for volume depletion, weakness, and diarrhea. During her admission, she was diagnosed with Clostridium difficile colitis and was treated with Flagyl for this. The [facility] staff reported that the patient has had diarrhea as well as bloody stools. ER staff did report that the patient's stool had a copper color in appearance. Unfortunately, the patient does have advanced dementia and is only alert and oriented to person only. She was not able to provide much help with history of the present illness or past medical history. Upon evaluation in the ER, the patient was found to have mild leukocytosis. She was having diarrhea in the ER, as well, and did have a Hemoccult stool that was positive. She does appear to be volume depleted with acute kidney injury, as well. At this time, we will admit the patient for further treatment and evaluation of GI bleed and diarrhea. Given that the patient has recently had Clostridium difficile colitis, a CT abdomen and pelvis was performed which did show proctitis with mild sigmoid colitis. Will likely anticipate these findings of colitis are secondary to Clostridium difficile infection, and we have placed stool studies and are awaiting them at this time. REVIEW OF SYSTEMS: A 14-point review of systems was conducted with the patient and all were negative except for pertinent positives mentioned in the above HPI. PAST MEDICAL HISTORY: 1. Dementia. 2. Primary hypothyroidism. 3. Hypercholesterolemia. 4. Bladder spasm with some incontinence. 5. Gastroesophageal reflux disease. 6. Chronic atrial fibrillation. 7. Recent diagnosis of Clostridium difficile colitis. PAST SURGICAL HISTORY: 1. Appendectomy, 2. Cholecystectomy. 3. Hysterectomy. ALLERGIES: The patient has allergies to codeine and fish. SOCIAL HISTORY: The patient currently is a resident at [facility]. There is no known previous history of tobacco, alcohol, or illicit drug use. FAMILY HISTORY: Unobtainable at this time due to the patient's current condition. HOME MEDICATIONS: 1. Betapace 40 mg p.o. b.i.d. 2. VESIcare 10 mg p.o. daily. 3. Pravastatin 80 mg p.o. at bedtime. 4. Namenda Extended Release 28 mg p.o. daily. 5. Synthroid 50 mcg p.o. daily. 6. Culturelle one p.o. daily. 7. Nexium 40 mg p.o. daily. 8. Aricept 10 mg p.o. daily. 9. Diltiazem controlled dose 180 mg p.o. daily. 10. Eliquis 5 mg p.o. b.i.d. 11. Norvasc 2.5 mg p.o. daily. 12. Megestrol acetate 400 mg p.o. daily. DIAGNOSTIC DATA/LABORATORY RESULTS: White blood cell count 12.25, hemoglobin 13.6, hematocrit 41, platelet count 553. PT 13.6, INR 1.28, PTT 31.4. Sodium 137, potassium 4.5, chloride 100, bicarbonate 20, BUN 32, creatinine 1.1 with a GFR of 47, glucose 137, calcium 8.5. Liver function tests within normal limits. Alkaline phosphatase 110. CT abdomen and pelvis without contrast did show proctitis with mild sigmoid colitis. Also noted was moderately distended bladder. Also noted were patchy densities in the right lower lung that are nonspecific but not previously seen Recommended followup to exclude infection. Milder densities in the lower lung are nonspecific. Pending diagnostic studies at this time are a urinalysis, EKG, and chest x-ray as well as stool studies and TSH. PHYSICAL EXAMINATION: VITAL SIGNS: Temperature 97.5, heart rate 84, respirations 22, blood pressure 132/83, oxygen saturation is 100% nasal cannula at 2 L. GENERAL: Ms. Cottrell is an 86-year-old elderly female who is resting in the ER stretcher who was in no acute distress. She was awake and alert, though due to dementia she was only alert and oriented to person. HEENT: Head is atraumatic, normocephalic. Pupils are equal, round and reactive to light, were 3 mm bilaterally and brisk. Subconjunctivae were slightly pale. Oral mucosa is dry. Oropharynx is clear. NECK: Supple, trachea midline. CARDIOVASCULAR: The patient has normal S1, S2, no murmurs, gallops, or rubs appreciated with a regular rate and rhythm. PULMONARY: The patient has symmetrical chest expansion bilaterally. Lung sounds are clear to auscultation in bilateral full hamilton. ABDOMEN: Soft, nontender, though the patient did have some facial grimacing noted upon palpation of her abdomen. Bowel sounds were present in all 4 quadrants though were hypoactive. EXTREMITIES: No cyanosis, clubbing, or edema noted. Pulse, motor, and sensory were intact in all extremities. Pedal pulses were 3+ bilaterally. INTEGUMENTARY: The patient's skin color is slightly pale. Skin is dry and intact. No lesions or sores noted. NEUROLOGICAL: The patient is alert and oriented to person only. Due to the patient's dementia neurological exam is limited at this time. ASSESSMENT AND PLAN: 1. Proctitis and mild sigmoid colitis. We suspect this is likely to Clostridium difficile infection, given her recent history of this. She was previously treated with Flagyl, so we have decided to place her on vancomycin 250 mg orally q.6 h. We will also treat the patient with Questran, as well, as well as Culturelle. We will monitor the patient for any signs of skin breakdown given her diarrhea. We will await stool studies and continue to monitor closely. This is likely secondary to Clostridium difficile, though we are awaiting stool studies to confirm. 2. GI bleed. Given the patient's history of colitis and diarrhea, this is likely a lower GI bleed. At this time, the patient will be placed on clear liquids only. We have placed a consult with Dr. Sanabria of Gastroenterology and will await her evaluation and further recommendations. We will monitor the patient's hemoglobin and hematocrit as well as her hemodynamic status closely. 3. Acute kidney injury. This is likely secondary to fluid volume depletion. Will continue with normal saline at 125 mL/h. and will continue to follow. 4. Chronic atrial fibrillation. Will continue the patient's diltiazem as well as her Betapace. 5. Dementia. Will continue the patient's Namenda, though we will hold her Aricept at this time. 6. Hypothyroidism. Will continue the patient's levothyroxine, and we have placed an order for a TSH and are awaiting at this time. 7. Hyperlipidemia. Will continue the patient's pravastatin. 8. Gastroesophageal reflux disease. We have placed the patient on Protonix 40 mg IV q.24 h. The patient will be placed on the medical floor with telemetry. She will have vital signs q.4 h. DVT prophylaxis will be provided with SCDs at this time. We will hold any anticoagulants. She will have clear liquid diet. We have placed an order with Case Management and Production Support Specialist given that she may need rehab placement upon discharge. Further orders and recommendations pending hospital course, diagnostic studies, and physician evaluation. Dictated by ALEXANDER Dorantes for Victor Manuel Dunn MD Seen and examined patient discussed case with AGUSTIN CHAPARRO
--- NOTE | 2017-01-17 11:15 | EKG Report ---
Test Performed on : 01/17/2017 10:11:11 AM Test Reason : Gi Bleed, Hx of Chronic A-Fib Blood Pressure : / mmHG Vent. Rate : 087 BPM Atrial Rate : 087 BPM P-R Int : 134 ms QRS Dur : 092 ms QT Int : 398 ms P-R-T Axes : 086 034 213 degrees QTc Int : 478 ms Normal sinus rhythm. ST & T wave abnormality, consider lateral ischemia Prolonged QT Abnormal ECG When compared with ECG of 14-NOV-2016 06:54, Sinus rhythm. has replaced Atrial fibrillation. Confirmed by Clifton WHITFIELD, Cristi Seymour ([id number]) on 01/18/2017 7:59:20 PM
[2017-01-17] MEDS: ZOSYN 3.375 GM/NS 50 ML IV SCH ×3 (11:45→23:28)
[2017-01-17 11:58] LABS: MANUAL DIFF NEEDED? NO
[2017-01-17 12:11] LABS: BASO% 0.1 % (0.0-0.8); HEMATOCRIT 33.8 % (37.0-47.0); HEMOGLOBIN 11.2 g/dL (12.0-16.0); IMM GRAN# 0.04 X1000 (0.0-0.04); IMM GRAN% 0.4 % (0.0-0.5); LYMPH# 2.01 X1000 (1.2-3.4); LYMPH% 20.4 % (20.5-51.1); MCHC 33.1 g/dL (33-37); MCV 84.5 FL (81-99); MONO# 0.91 X1000 (0.11-0.59); MONO% 9.3 % (1.7-9.3); MPV 8.5 FL (7.4-10.4); NEUT% 69.8 % (42.2-75.2); PLT 427 X1000 (130-400)
[2017-01-17 12:30] LABS: ALBUMIN 2.3 g/dL (3.5-5.0); CALCIUM 7.5 mg/dL (8.8-10.2); POTASSIUM 3.9 mmol/L (3.5-5.1); TOTAL BILIRUBIN 0.32 mg/dL (0.20-1.00); TOTAL PROTEIN 5.7 g/dL (6.3-8.3)
[2017-01-17] MEDS ORDERED: GOLYTELY PO ONE (12:59)
[2017-01-17] MEDS ORDERED: GLYCERIN ADULT PR ONE (13:05)
[2017-01-17 13:12] LABS: FERRITIN 221 ng/mL (13-150)
[2017-01-17] MEDS ORDERED: DULCOLAX PR ONE (14:00)
[2017-01-17] MEDS: CARAFATE LIQUID PO SCH ×2 (16:17→20:29)
[2017-01-17] MEDS ORDERED: CALMOSEPTINE OINTMENT TOP PRN (17:47)
[2017-01-17] MEDS ORDERED: FLUZONE QUAD 2016-2017 SYRINGE IM ONE (17:49)
[2017-01-17] MEDS ORDERED: PNEUMOVAX 23 IM ONE (17:50)
[2017-01-17] MEDS: PROTONIX 80 MG in NS 80 ML IV SCH ×2 (18:00→20:29)
[2017-01-17 19:05] LABS: HEMATOCRIT 31.9 % (37.0-47.0); HEMOGLOBIN 10.4 g/dL (12.0-16.0)
--- NOTE | 2017-01-17 19:32 | CONSULTATION ---
DATE OF CONSULTATION: 01/17/2017 REASON FOR REFERRAL: Bloody stools, history of C. difficile colitis. HISTORY OF PRESENT ILLNESS: This is an 86-year-old, white female who was in the hospital in October of this year and diagnosed with Clostridium difficile colitis and was treated. She was transferred to [facility] and spent her rehabilitation there and then was referred over to the [facility] facility at [facility]. Per family the [facility] staff had reported bloody stool. No reported black stools since the patient has been admitted. The nurse reports brown stool, loose, no active bleeding noted. Upon evaluation patient had mild leukocytosis. She had a Hemoccult-positive stool. A CT scan of the abdomen and pelvis showed a small rectal fecal impaction with significant rectal wall thickening and thickening involving the distal sigmoid colon. Nodular infiltrates at the lung bases worse on the right. No obstructive bowel pattern noted. The patient has some dementia. Unable to assist with past medical history. I have talked with the family. PAST MEDICAL HISTORY: Dementia, hypothyroidism, hypercholesterolemia, GERD, chronic atrial fibrillation, history of Clostridium difficile in October 2016, history of bladder spasms, incontinence. PAST SURGICAL HISTORY: Appendectomy, cholecystectomy, hysterectomy. ALLERGIES: Codeine with unknown reaction noted. Fish with unknown reaction noted. HOME MEDICATIONS: Betapace 40 mg twice daily, VESIcare 10 mg daily, pravastatin 80 mg every night, Singulair 10 mg every day, Namenda 28 mg daily, Synthroid 50 mcg daily, Culturelle 1 daily, Nexium 40 mg daily, Aricept 10 mg daily, Cardizem 180 mg daily, Eliquis 5 mg twice daily, Norvasc 2.5 mg daily, Megace 400 mg daily. SOCIAL HISTORY: She is currently residing at [facility]. REVIEW OF SYSTEMS: Per HPI. PHYSICAL EXAMINATION: Vital Signs: Temperature 98.0 degrees, pulse 83, respirations 20, blood pressure 121/65. General: Patient is awake. She is alert but with a history of dementia. Oriented to person only. HEENT: Normocephalic, atraumatic. Pupils equal, round, reactive to light. Sclerae nonicteric. Cardiovascular: Regular rate and rhythm. Pulmonary: Lung sounds essentially clear. Abdomen: Soft. Some grimacing noted with palpation. Otherwise positive bowel sounds. Extremities: No noted edema. Pedal pulses positive bilaterally. Neurological: She is awake and alert. Oriented to person. She has a history of dementia. LABORATORY RESULTS: Hematology: White count 9.83. On admission WBC was 12.25. Antibiotics were started. Hemoglobin 11.2, hematocrit 33.8, MCV 84.5, coagulation pro time 13.6, INR 1.28, PTT 31.4. Chemistry: Sodium 140, potassium 3.9, chloride 107, CO2 20, BUN 29, creatinine 0.9, glucose 144, calcium 7.5, phosphorus 3.2, magnesium 2.0, iron 11, TIBC 129% saturation , total bilirubin 0.32, AST 15, ALT 20, alkaline phosphatase 72, ferritin 221. CT findings as noted with rectal impaction and wall thickening involving the distal sigmoid colon possibly related to stercoral ulcer from impaction. ASSESSMENT AND PLAN: 1. Diarrhea most likely overflow diarrhea. Her C. difficile stool test was negative. 2. Rectal bleeding. Possible stercoral ulcer related to impaction/ constipation. 3. Proctitis/colitis. C. difficile stool test was negative. She did have some elevation in her white blood cell count. Continue antibiotics. We will continue to monitor. We will give her a glycerin suppository and do Dulcolax suppository followed by 1 L of Go-Lyte to try and clean her out and relieve the constipation and impaction. Further plans to be made according to results. 4. I have discussed this case with Dr. Hamilton. Further plans will be made as needed. Thank you for this consultation. Dictated by ALEXANDER Dunbar for Flash Hamilton MD
[2017-01-17] MEDS: PRAVACHOL PO SCH (20:28)
[2017-01-18 01:02] LABS: HEMATOCRIT 30.8 % (37.0-47.0); HEMOGLOBIN 10.1 g/dL (12.0-16.0)
[2017-01-18] MEDS: CARAFATE LIQUID PO SCH ×4 (01:14→20:22)
[2017-01-18] MEDS: VANCOCIN PO SCH ×2 (01:14→10:05)
[2017-01-18] MEDS: NS 1,000 ML IV SCH (03:53)
[2017-01-18] MEDS: ZOSYN 3.375 GM/NS 50 ML IV SCH ×4 (05:22→23:12)
[2017-01-18] MEDS: PROTONIX 80 MG in NS 80 ML IV SCH ×2 (05:57→18:57)
[2017-01-18] MEDS: SYNTHROID PO SCH (05:59)
[2017-01-18 07:15] LABS: MANUAL DIFF NEEDED? NO
[2017-01-18 07:23] LABS: BASO% 0.1 % (0.0-0.8); EOS# 0.07 X1000 (0.0-0.7); EOS% 0.8 % (0.0-10.0); HEMOGLOBIN 10.2 g/dL (12.0-16.0); IMM GRAN# 0.05 X1000 (0.0-0.04); IMM GRAN% 0.6 % (0.0-0.5); LYMPH# 2.15 X1000 (1.2-3.4); LYMPH% 25.3 % (20.5-51.1); MCH 27.7 PG (27-31); MCHC 32.9 g/dL (33-37); MCV 84.2 FL (81-99); MONO# 1.23 X1000 (0.11-0.59); MONO% 14.5 % (1.7-9.3); MPV 8.8 FL (7.4-10.4); NEUT% 58.7 % (42.2-75.2); PLT 418 X1000 (130-400); RBC 3.68 XMIL (4.2-5.4)
[2017-01-18 07:53] LABS: AGAP 12; ALKALINE PHOSPHATASE 74 U/L (32-104); BUN 16 mg/dL (8-22); CALCIUM 7.7 mg/dL (8.8-10.2); CHLORIDE 110 mmol/L (98-107); COSMO 286; GOT 22 U/L (10-30); GPT 20 U/L (10-36); POTASSIUM 2.9 mmol/L (3.5-5.1); SODIUM 143 mmol/L (136-145); TCO2 21 mmol/L (25-35); TOTAL BILIRUBIN 0.36 mg/dL (0.20-1.00); TOTAL PROTEIN 5.3 g/dL (6.3-8.3)
[2017-01-18] MEDS: BETAPACE PO SCH ×2 (10:04→20:21)
[2017-01-18] MEDS: CULTURELLE PO SCH (10:04)
[2017-01-18] MEDS: CARDIZEM CD PO SCH (10:05)
[2017-01-18] MEDS: NORVASC PO SCH (10:05)
[2017-01-18] MEDS: NAMENDA XR PO SCH (10:05)
[2017-01-18] MEDS: SINGULAIR PO SCH (10:05)
[2017-01-18] MEDS ORDERED: POTASSIUM CHLORIDE 20% LIQUID PO ONE (12:09)
[2017-01-18] MEDS ORDERED: POTASSIUM CHLORIDE 40 MEQ/SWI 100 ML IV ONE (12:10)
[2017-01-18] MEDS ORDERED: ICAR-C PO ONE (12:32)
[2017-01-18] MEDS: POTASSIUM CHLORIDE 20 MEQ/SWI 100 ML IV SCH ×2 (13:27→20:20)
--- NOTE | 2017-01-18 16:02 | PROGRESS NOTE ---
DATE: 01/18/2017 SUBJECTIVE: Ms. Cottrell is an 86-year-old female with a history of dementia, who states that she feels better today. She feels like she is not having as many bowel movements. No abdominal pain. She was ruled out for C. diff and is still receiving IV Zosyn for proctitis, sigmoid colitis, and also to cover right lung base nodules that appear to be of infectious process that was found on the abdominopelvic CT. OBJECTIVE: Vital signs: Temperature 98.1. Heart rate 71. Respiratory rate 18. Blood pressure 130/72. O2 saturation 100%. General: Ms. Cottrell is an 86-year-old female. She is much more alert and answers some questions. Daughter is at bedside answering most questions. Cardiovascular: S1, S2. Regular rate and rhythm. No rubs, gallops, or murmurs. Pulmonary: Clear to auscultation. Bilateral breath sounds decreased in the bases. GI: Soft, nontender, nondistended. Positive bowel sounds x4. Extremities: No edema. +2 dorsalis and radial pulses. LABORATORY DATA: White blood cells 8000, hemoglobin 10, hematocrit 30, platelet count 418. Sodium 143, potassium 2.9, BUN 16, creatinine 0.6, glucose 90, calcium 7.7, protein 5.3, albumin 2. Urinalysis negative. IMAGING: Abdominopelvic CT performed yesterday showed evidence of small rectal fecal impaction with significant rectal wall thickening and thickening involving the distal sigmoid colon associated with surrounding inflammatory changes consistent with colitis and proctitis, consider stercoral colitis, proctitis given the impaction, she had nodular infiltrates at the lung bases, worse on the right that were felt to be an infectious process. ASSESSMENT AND PLAN: 1. Diarrhea overflow secondary to impaction. GI was consulted. She was ordered glycerin suppository, Dulcolax suppository, and GoLYTELY for the impaction. She was unable to be digitally disimpacted, it was too far up. When assessed a full bottle of GoLYTELY was at the bedside. Unknown if there are any plans for procedure or scope. 2. Proctitis, colitis, likely secondary to impaction, so this is stercoral colitis, proctitis. Continue Zosyn. 3. Lung base nodules, worse on the right, likely infectious, continue Zosyn. White blood cells have returned to normal. She is afebrile. 4. Gastrointestinal bleed. Hemoglobin and hematocrit remain stable, we will discontinue serial hemoglobin and hematocrits. She will slip cover sewer to IV Protonix. Continue Carafate. 5. Hypokalemia. We will do 40 IV over 8 hours and 40 p.o., her potassium level was 2.9. 6. Acute kidney injury secondary to dehydration, this resolved with IV fluid hydration. 7. Iron deficiency anemia, could be secondary to blood loss. Will start on iron supplementation. 8. Chronic atrial fibrillation. Continue home medications. 9. Dementia. Continue home medications. She is much more alert today. 10. Hypothyroidism. Continue Synthroid. 11. Hyperlipidemia. Continue pravastatin. 12. Gastrointestinal prophylaxis, continue Protonix and SCDs for deep venous thrombosis prophylaxis. 13. History of Clostridium difficile infection but now infection has been negative. P.o. vancomycin is discontinued. Dictated by ALEXANDER Baugh for Isaias Patricio Camacho MD addendum: I personally evaluated and examined the patient in conjunction to the [employer] and agreed with her assessment and plans. Will continue to monitor her HH and transfuse if needed MTDD
[2017-01-18] MEDS: ICAR-C PO SCH (20:21)
[2017-01-18] MEDS: PRAVACHOL PO SCH (20:22)
[2017-01-19] MEDS: CARAFATE LIQUID PO SCH ×3 (02:22→14:13)
[2017-01-19] MEDS: PROTONIX 80 MG in NS 80 ML IV SCH ×2 (02:40→14:12)
[2017-01-19] MEDS: ZOSYN 3.375 GM/NS 50 ML IV SCH ×2 (04:33→11:47)
[2017-01-19] MEDS: SYNTHROID PO SCH (06:04)
[2017-01-19] MEDS: CULTURELLE PO SCH ×2 (07:42→10:12)
[2017-01-19] MEDS: CARDIZEM CD PO SCH ×2 (07:42→10:12)
[2017-01-19] MEDS: NAMENDA XR PO SCH ×2 (07:42→10:11)
[2017-01-19] MEDS: BETAPACE PO SCH ×2 (07:42→10:10)
[2017-01-19] MEDS: ICAR-C PO SCH ×2 (07:42→10:11)
[2017-01-19] MEDS: NORVASC PO SCH ×2 (07:42→10:11)
[2017-01-19] MEDS: SINGULAIR PO SCH ×2 (07:43→10:11)
[2017-01-19] MEDS ORDERED: POTASSIUM CHLORIDE 80 MEQ in NS 500 ML IV ONE (10:30)
[2017-01-19 10:31] LABS: BASO% 0.3 % (0.0-0.8); EOS# 0.19 X1000 (0.0-0.7); HEMATOCRIT 33.1 % (37.0-47.0); LYMPH# 2.28 X1000 (1.2-3.4); LYMPH% 23.5 % (20.5-51.1); MANUAL DIFF NEEDED? YES; MCH 28.1 PG (27-31); MCHC 33.2 g/dL (33-37); MCV 84.4 FL (81-99); MONO# 1.13 X1000 (0.11-0.59); MONO% 11.6 % (1.7-9.3); MPV 8.2 FL (7.4-10.4); NEUT% 61.6 % (42.2-75.2); PLT 449 X1000 (130-400); RBC 3.92 XMIL (4.2-5.4)
[2017-01-19] MEDS ORDERED: NS 250 ML ONE (10:32)
--- NOTE | 2017-01-19 10:39 | Diag Imaging Result Document ---
PROCEDURE NAME: THOR ABDOMEN - 01/19/2017 ABDOMEN: COMPARISON: 01/16/2017. FINDINGS: There is much less stool in the colon. There is stable mild gas hyperinflation of the colon. The gas-distended small bowel loops are normal in size. No evidence of free air. IMPRESSION: Resolution of the rectal stool impaction. Grossly normal quantities of gas in the colon and small bowel.
[2017-01-19 10:43] LABS: AGAP 11; ALBUMIN 2.4 g/dL (3.5-5.0); ALKALINE PHOSPHATASE 60 U/L (32-104); BUN 6 mg/dL (8-22); CALCIUM 7.9 mg/dL (8.8-10.2); CHLORIDE 107 mmol/L (98-107); COSMO 276; GOT 26 U/L (10-30); GPT 24 U/L (10-36); MAGNESIUM 1.7 mg/dL (1.5-2.7); POTASSIUM 3.4 mmol/L (3.5-5.1); SODIUM 140 mmol/L (136-145); TCO2 22 mmol/L (25-35); TOTAL BILIRUBIN 0.41 mg/dL (0.20-1.00); TOTAL PROTEIN 5.6 g/dL (6.3-8.3)
[2017-01-19 10:53] LABS: BANDS 2 % (0-1); LYMPHS 20 % (21-51); MONO 8 % (1-9)
--- NOTE | 2017-01-19 13:05 | PROGRESS NOTE ---
DATE: 01/19/2017 SUBJECTIVE: The patient states she feels a little better. She does reported some generalized pain all over. She is eating lunch without difficulty. OBJECTIVE: Vital signs: Temperature 98.0, pulse 70, respirations 18, blood pressure 114/92. General: The patient is awake and alert. She is tolerating her diet. Family is at the bedside. Respiratory: Lung sounds essentially clear. Abdomen: Soft. DIAGNOSTIC RESULTS/LABORATORY: Hematology--white count 9.70, hemoglobin 11.0, hematocrit 33.1, MCV 84.4, platelets 449. Chemistry--sodium 140, potassium 3.4, chloride 107, CO2 was 22, BUN 6, creatinine 0.6, glucose 81. Abdominal x-ray done this morning showed resolution of the rectal stool impaction with normal quantities of gas in the colon and small bowel, no evidence of free air. ASSESSMENT AND PLAN: 1. Rectal bleeding, resolved. Hemoglobin and hematocrit are stable. 2. Diarrhea most likely from overflow diarrhea secondary to impaction/ constipation. The patient was cleansed with GoLYTELY glycerin suppository and Dulcolax suppository. She is now having bowel movements. 3. Other medical problems including hypokalemia--replaced, acute kidney injury resolved with fluid restriction, dementia, hypothyroidism, hyperlipidemia, history of Clostridium difficile and stool studies were negative this admission. 4. Proctitis/colitis most likely from stercoral ulcer, and plan is to continue current medications. Recommend to take laxative on a daily basis. Have discussed the plan with PMD who has ordered MiraLAX for discharge. She has discharge orders for today. Further plans will be made as needed. Dictated by ALEXANDRE Dunbar for Flash Hamilton MD [facility]
--- NOTE | 2017-01-19 14:48 | DISCHARGE SUMMARY ---
ADMISSION DATE: 01/17/2017 DISCHARGE DATE: 01/19/2017 ADMISSION DIAGNOSES: 1. Proctitis and mild sigmoid colitis. 2. Gastrointestinal bleed. 3. Acute kidney injury. 4. Chronic atrial fibrillation. 5. Dementia. 6. Hypothyroidism. 7. Hyperlipidemia. 8. Gastroesophageal reflux disease. DISCHARGE DIAGNOSES: 1. Diarrhea overflow secondary to impaction. 2. Proctitis/colitis secondary to impaction, stercoral colitis. 3. Lung bases nodules, worse on the right, likely infectious. 4. Gastrointestinal bleed. 5. Hypokalemia. 6. Acute kidney injury secondary to dehydration. 7. Iron deficiency anemia. 8. Chronic atrial fibrillation. 9. Dementia. 10. Hypothyroidism. 11. Hyperlipidemia. 12. Gastroesophageal reflux disease. CONSULTS: Dr. Hamilton with Gastroenterology. HOSPITAL COURSE: Ms. Danielle Cottrell is an 86-year-old female admitted in October of 2016 for Clostridium difficile colitis, was treated with Flagyl for that. assisted staff reported this patient has been having diarrhea with some bloody stools, which was copper in color once she was admitted here. Given her advanced dementia, she was unable to provide much information for past medical history and history is obtained through past medical records. She had a stool sent for Clostridium difficile, which ended up being negative. She was started on a Protonix drip, and Carafate, and clear liquids, which she has tolerated. She was found to have a mild leukocytosis when she was admitted, along with multiple spells of diarrhea , and the Hemoccult was positive. She was volume depleted with acute kidney injury, which has resolved. The Clostridium difficile that had been positive in October is now negative, and so a CT abdomen and pelvis was performed, which showed proctitis and mild sigmoid colitis. The CT also showed some questionable infection on the lower lobes of lungs, and during this time, she has been receiving Zosyn for the proctitis, colitis, and bilateral lower lobe questionable infection. Vital signs have remained stable. She was diagnosed with impaction which caused stool overflows, and now she is having daily just one time per day bowel movements, soft brown, and is consuming at least 75% of her meals without any complaints. Gastroenterology saw her and started her on stool softener and laxatives, but no further procedures were done. Discharge vital signs: Temperature 98.0, heart rate 70, respiratory rate 18, blood pressure 114/92, O2 saturation 97% on room air. Gastrointestinal assessment: Abdomen was soft, nontender, nondistended. She denied pain. DISCHARGE DIET: Ensure with meals daily. She will do GI soft. DISCHARGE LABORATORY DATA: White blood cells 9000, hemoglobin 11, hematocrit 33 , platelet count 449, sodium 140, potassium 3.4, BUN 6, creatinine 0.6, glucose 81, calcium 7.9, magnesium 1.7, albumin 2.4. Iron level was 11. IMAGING: Abdominal x-ray on 01/19/2017: Resolution of rectal stool impaction. Grossly normal quantities of gas in the colon and small bowel. Chest x-ray from 01/17/2017: No acute findings. The abdominal and pelvic CT from 01/17/2017 showed: 1.) Nodular infiltrates at the lung bases, worse on the right, probably infectious process. 2.) Evidence of small rectal fecal impaction with significant rectal wall thickening and thickening involving the distal sigmoid colon and associated surrounding inflammatory changes consistent with colitis/proctitis. Consider stercoral colitis/proctitis given the impaction. DISCHARGE MEDICATIONS: Aricept 10 mg p.o. daily, Namenda 28 mg p.o. daily, pravastatin 80 mg p.o. nightly, Synthroid 50 mcg p.o. daily, VESIcare 10 mg p.o. daily, Betapace 40 mg p.o. twice daily, Nexium 40 mg p.o. daily, Singulair 10 mg p.o. daily, megestrol acetate 400 mg p.o. daily, Norvasc 2.5 mg p.o. daily, Cardizem 180 mg p.o. daily, Culturelle p.o. daily. She was on Eliquis 5 mg p.o. twice daily. This was held during the hospital stay. She will also be started on stool softeners, Colace, and MiraLAX. She was on Zosyn while she was here. Antibiotics per Dr. Camacho. DISCHARGE DISPOSITION: Back to [facility]. DISCHARGE INSTRUCTIONS: Take daily stool softeners/laxatives as needed to keep or prevent stool impaction. If any other symptoms return or persist, to return for medical assistance. Dictated by ALEXANDER Baugh for Isaias Camacho MD Addendum: I personally evaluated and examined the patient in conjunction to the STUDENT LOAN COUNSELOR and agreed with her plans and disposition. Also, discussed with her daughter as well. SHANKAR
[2017-01-20] MEDS ORDERED: PROTONIX IV SCH (10:58)
== END 2017-01-19 16:30 ==
LOC: EDBD → ED 19:31 → EDIPHOLD 01-17 08:16 → 3N 01-17 14:13
PROVIDERS: ATTEND Internal Medicine

== ENCOUNTER 2017-02-11 16:06 | Inpatient (IN) ==
[2017-02-11 17:49] LABS: MANUAL DIFF NEEDED? NO
--- NOTE | 2017-02-11 17:53 | Diag Imaging Result Document ---
PROCEDURE NAME: XRAY PELVIS W/HIP 2-3VW LT - 02/11/2017 PELVIS AND LEFT HIP, 2 VIEWS: FINDINGS: There is a left femoral neck fracture. The femoral head remains in the acetabulum. The femoral shaft is rotated and superiorly placed. IMPRESSION: Left femoral neck fracture.
[2017-02-11 17:58] LABS: BASO% 0.1 % (0.0-0.8); EOS# 0.32 X1000 (0.0-0.7); EOS% 2.3 % (0.0-10.0); HEMATOCRIT 37.8 % (37.0-47.0); HEMOGLOBIN 12.6 g/dL (12.0-16.0); IMM GRAN# 0.06 X1000 (0.0-0.04); IMM GRAN% 0.4 % (0.0-0.5); LYMPH# 1.79 X1000 (1.2-3.4); MCH 30.2 PG (27-31); MCHC 33.3 g/dL (33-37); MCV 90.6 FL (81-99); MONO# 1.67 X1000 (0.11-0.59); MONO% 12.1 % (1.7-9.3); MPV 8.9 FL (7.4-10.4); NEUT% 72.1 % (42.2-75.2); PLT 334 X1000 (130-400); RBC 4.17 XMIL (4.2-5.4)
[2017-02-11 18:03] LABS: INR 1.06; PROTIME 11.2 Seconds (9.2-11.7)
[2017-02-11 18:11] LABS: ALBUMIN 3.2 g/dL (3.5-5.0); CALCIUM 8.9 mg/dL (8.8-10.2); POTASSIUM 3.8 mmol/L (3.5-5.1); TOTAL BILIRUBIN 0.64 mg/dL (0.20-1.00); TOTAL PROTEIN 6.8 g/dL (6.3-8.3)
--- NOTE | 2017-02-11 18:20 | Diag Imaging Result Document ---
PROCEDURE NAME: CHEST-1 VIEW - 02/11/2017 CHEST, SINGLE VIEW: COMPARISON: Compared to 01/17/2017 The lungs are well expanded. The heart is not enlarged. The vessels are not distended. No pneumonia. No pleural effusion identified. The left hemidiaphragm is elevated. IMPRESSION: Negative chest.
[2017-02-11 19:11] LABS: URINE CULTURE NEEDED? NO; URINE MICRO REVIEW NEEDED? NO; URINE SOURCE CATH
[2017-02-11 19:14] LABS: BILIRUBIN URINE NEGATIVE (NEGATIVE); BLOOD URINE NEGATIVE (NEGATIVE); COLOR YELLOW; GLUCOSE URINE NEGATIVE (NEGATIVE); LEUKOCYTES URINE NEGATIVE (NEGATIVE); NITRITE URINE NEGATIVE (NEGATIVE); PH URINE 7.5; PROTEIN URINE NEGATIVE (NEGATIVE); SP GRAVITY URINE 1.015; TURBIDITY URINE HAZY (CLEAR); UROBILINOGEN URINE NORMAL (NORMAL)
[2017-02-11 19:15] LABS: UR EPITHELIAL CELLS <10 /HPF (<10); URINE BACTERIA NEGATIVE /HPF; URINE RBC <10 /HPF (<10); URINE WBC <10 /HPF (<10)
[2017-02-11] MEDS: NS 1,000 ML IV SCH (19:37)
[2017-02-11] MEDS: NORCO-7.5 PO PRN (20:48)
--- NOTE | 2017-02-11 22:39 | HISTORY AND PHYSICAL ---
PRIMARY CARE PHYSICIAN: Dr. Mendiola at [facility]. PRESENTING COMPLAINT: Fall, with pain to left hip. HISTORY OF PRESENTING COMPLAINT: Ms. Cottrell is an 86-year-old female with a history of dementia, hypothyroidism, chronic atrial fibrillation, on Eliquis anticoagulation, and recurrent C. difficile colitis. The patient has been in [facility] since October this year, after she went through rehab for over 2 months and did not seem to have improved, so she transitioned to a skilled nursing. Patient had been relatively fine until yesterday, understanding she was in a wheelchair. She reached out for a magazine which was on the floor. She fell off from the wheelchair, hit the forehead, and sustained an injury to the left hip. The patient was not able to help herself to get up, so she was assisted by the staff in the skilled nursing, put on the wheelchair, and sent back to her room. Since this morning, she has been complaining of pain to the left hip. An x-ray was done, which confirmed a fracture. The patient was brought in, and we were asked to evaluate. The patient was also discussed with Dr. Akira Weiner, the orthopedics bonus clerk, who recommended to admit the patient, and he would do surgery on her early in the morning. PAST MEDICAL HISTORY: 1. Dementia. 2. Hypothyroidism. 3. GERD. 4. Chronic atrial fibrillation. 5. Eliquis anticoagulation. PAST SURGICAL HISTORY: 1. Cholecystectomy. 2. Hysterectomy. 3. Appendectomy. ALLERGIES: Codeine and fish. SOCIAL HISTORY: Patient is currently a resident of [facility]. Denies any tobacco, alcohol, or any illicit drugs. CURRENT MEDICATIONS: 1. Donepezil 10 mg daily. 2. Pravastatin 80 mg daily. 3. Levothyroxine 50 mg daily. 4. VESIcare 10 mg daily. 5. Betapace 40 mg b.i.d. 6. Nexium 40 mg daily. 7. Diltiazem 180 p.o. daily. 8. Lactobacillus. 9. Megace. 10. Sucralfate. 11. Apixaban 2.5 b.i.d. 12. Amlodipine 2.5 p.o. daily. 13. Memantine 28 mg daily. REVIEW OF SYSTEMS: Fourteen-point review of systems conducted with the patient, and all were negative, except for the pertinent positives mentioned in the HPI. PHYSICAL EXAMINATION: VITAL SIGNS: Blood pressure 139/74, pulse of 77, respirations 24, temperature is not documented yet. Patient is saturating 96% on room air. GENERAL: Ms. Cottrell is an 86-year-old female. She is in bed. She looks clinically dry. HEENT: Mucosa is dry, anicteric, and acyanotic. CHEST: Good air entry bilateral. No crepitations. No rhonchi. CARDIOVASCULAR: Regular rate and rhythm. I did not appreciate any murmurs. ABDOMEN: Soft, mildly distended, and bowel sounds are hypoactive. EXTREMITIES: About 1+ pedal edema distal. The left lower extremity has external rotation. There is also an old surgical scar on the medial aspect of the left ankle. Mobilization of the whole left leg is extremely painful. CENTRAL NERVOUS SYSTEM: Patient is alert, is oriented to place and to person. Disoriented to time. The patient has significant memory impairment. Sensation is intact, and motor is also intact, except for the left lower extremity, which is not able to mobilize because of pain. LABORATORY DATA: WBC is 13.84, hemoglobin is 12.6, platelet count of 334. Chemistry: Sodium 136, potassium 3.8, chloride 99, bicarbonate is 22, creatinine is 1.0. A chest x-ray which was done shows negative. A hip and pelvic x-ray shows left femoral neck fracture. ASSESSMENT: Ms. Angel is an 86-year-old female, who accidentally fell off her wheelchair at the skilled nursing yesterday, came in. X-rays significant for a left hip fracture. Dr. Weiner has been notified. 1. Status post fall, with a left hip femoral neck fracture. Patient is going to be evaluated by Dr. Weiner. My understanding is that the surgery will be done hopefully tomorrow. We will withhold anticoagulation for tonight until surgery is done. 2. Clinical dehydration. We are going to gently hydrate the patient. 3. Constipation. We will treat this more symptomatically. 4. History of Alzheimer dementia. We will continue with her donepezil and memantine. 5. Limited morbidity, with wheelchair-bound at the skilled nursing. 6. Chronic atrial fibrillation. The patient is on Eliquis anticoagulation. We are going to withhold the blood thinner for today until surgery is done, and hopefully we can restart it once hemostasis has been achieved. In general, Ms. Cottrell will be admitted to the medical floor with surveillance monitor. We will withhold anticoagulation for tonight. She will be started on a healthy heart diet. We will do a CT scan of the head just to make sure there is not any bleed, since she is on Eliquis, and we will be treating all her other comorbidities with her home medications. Will be pending Dr. Weiner's evaluation and estimation on when surgery can be done. The patient is a resident of [facility], so disposition will be to [facility]. cc: Obie Rosas MD
[2017-02-12] MEDS: BETAPACE PO SCH ×3 (05:23→21:30)
[2017-02-12] MEDS: PRAVACHOL PO SCH ×2 (05:23→21:30)
[2017-02-12] MEDS: NS 1,000 ML IV SCH ×3 (05:28→17:46)
--- NOTE | 2017-02-12 05:41 | EKG Report ---
Test Performed on : 02/11/2017 4:29:29 PM Test Reason : fall Blood Pressure : / mmHG Vent. Rate : 067 BPM Atrial Rate : 067 BPM P-R Int : 122 ms QRS Dur : 086 ms QT Int : 454 ms P-R-T Axes : 017 035 085 degrees QTc Int : 479 ms Normal sinus rhythm. Nonspecific ST and T wave abnormality Abnormal ECG When compared with ECG of 17-JAN-2017 10:11, ST no longer depressed in Anterior leads Nonspecific T wave abnormality no longer evident in Inferior leads T wave inversion no longer evident in Lateral leads Unconfirmed Result
[2017-02-12] MEDS: PRILOSEC PO SCH (06:16)
[2017-02-12] MEDS: SYNTHROID PO SCH (06:16)
[2017-02-12 07:52] LABS: MANUAL DIFF NEEDED? NO
--- NOTE | 2017-02-12 07:53 | Diag Imaging Result Document ---
PROCEDURE NAME: HEAD W/O CONTRAST - 02/11/[address], 02/11/2017: A CT dose reduction protocol was used. COMPARISON: 11/14/2016. FINDINGS: There is stable mild diffuse atrophy. Stable extensive periventricular white matter hypodensity compatible with chronic microvascular disease. No intracranial mass or hemorrhage. The skull is intact. The sinuses, mastoids, and middle ears are clear. IMPRESSION: No acute disease or change from prior. [facility]
[2017-02-12 08:03] LABS: BASO% 0.1 % (0.0-0.8); EOS# 0.25 X1000 (0.0-0.7); EOS% 2.4 % (0.0-10.0); HEMATOCRIT 37.8 % (37.0-47.0); HEMOGLOBIN 12.3 g/dL (12.0-16.0); IMM GRAN# 0.04 X1000 (0.0-0.04); IMM GRAN% 0.4 % (0.0-0.5); LYMPH# 2.05 X1000 (1.2-3.4); LYMPH% 19.4 % (20.5-51.1); MCH 29.7 PG (27-31); MCHC 32.5 g/dL (33-37); MCV 91.3 FL (81-99); MONO% 13.2 % (1.7-9.3); MPV 9.2 FL (7.4-10.4); NEUT% 64.5 % (42.2-75.2); PLT 317 X1000 (130-400); RBC 4.14 XMIL (4.2-5.4)
[2017-02-12 08:08] LABS: PROTIME 10.5 Seconds (9.2-11.7)
[2017-02-12] MEDS: CARAFATE LIQUID PO SCH ×3 (08:36→17:11)
[2017-02-12] MEDS: VESICARE PO SCH (08:37)
[2017-02-12] MEDS: MEGACE LIQUID PO SCH (08:37)
[2017-02-12] MEDS: MIRALAX PO SCH (08:37)
[2017-02-12] MEDS: COLACE PO SCH (08:37)
[2017-02-12] MEDS: ARICEPT PO SCH (08:38)
[2017-02-12] MEDS: CARDIZEM CD PO SCH (08:38)
[2017-02-12] MEDS: CULTURELLE PO SCH (08:38)
[2017-02-12] MEDS: NAMENDA XR PO SCH (08:39)
[2017-02-12 08:44] LABS: AGAP 16; ALBUMIN 2.7 g/dL (3.5-5.0); ALKALINE PHOSPHATASE 187 U/L (32-104); BUN 16 mg/dL (8-22); CALCIUM 8.6 mg/dL (8.8-10.2); CHLORIDE 103 mmol/L (98-107); COSMO 275; GOT 85 U/L (10-30); GPT 57 U/L (10-36); SODIUM 138 mmol/L (136-145); TCO2 19 mmol/L (25-35); TOTAL BILIRUBIN 0.72 mg/dL (0.20-1.00); TOTAL PROTEIN 6.4 g/dL (6.3-8.3)
--- NOTE | 2017-02-12 09:02 | CONSULTATION ---
DATE OF CONSULTATION: 02/12/2017 CHIEF COMPLAINT: Fall. HISTORY OF PRESENT ILLNESS: Ms. Cottrell is an 86-year-old female who presented to the emergency department yesterday for evaluation of this left hip. She has been recently put in a half-way and she was in her wheelchair when she reached out for a magazine and fell out of wheelchair, hit her head and sustained an injury to her left hip. She is found to have a hip fracture. X-ray is done in the ER and she was then admitted to the hospitalist service. She does have some baseline dementia as well. PAST MEDICAL HISTORY: 1. Dementia. 2. Hypothyroidism. 3. Reflux. 4. Chronic atrial fibrillation. PAST SURGICAL HISTORY: 1. Cholecystectomy. 2. Hysterectomy. 3. Appendectomy. ALLERGIES: Codeine and fish. MEDICATIONS: 1. Donepezil. 2. Pravastatin. 3. Levothyroxine. 4. VESIcare. 5. Betapace. 6. Nexium. 7. Diltiazem. 8. Lactobacillus. 9. Sucralfate. 10. Apixaban. 11. Amlodipine. 12. Memantine. SOCIAL HISTORY: She is resident at [facility]. Denies any tobacco or alcohol use. REVIEW OF SYSTEMS: Positive for left hip pain. All other systems are essentially negative. PHYSICAL EXAMINATION: General: Well-developed female currently in no acute distress. HEENT: Head and neck appears normocephalic, atraumatic. Respirations: Nonlabored. Cardiovascular: Regular rate. Abdomen: Nondistended. Extremity: Left lower extremity exam she has tenderness to palpation around the hip, none at the knee, none at the ankle or the foot. She is able to wiggle her toes very well and able to dorsiflex the ankle very well. 2+ DP pulse. Good sensation to light touch to the toes. No tenderness to palpation to the right lower extremity. RADIOGRAPHS: Pelvis film shows a displaced left femoral neck fracture. PLAN: Since Ms. Cottrell is on Eliquis, usually we will wait at least a full 24 hours of being off of the Eliquis before proceeding with surgery. It is more than likely she will go on Sunday02/13/2017 to the OR for a left hip hemiarthroplasty. She can eat and drink today, but I would continue to withhold her anticoagulation until we get it done tomorrow and then we will start her back again. cc: Akira Weiner MD
[2017-02-12] MEDS: NORCO-7.5 PO PRN (10:58)
--- NOTE | 2017-02-12 17:49 | PROGRESS NOTE ---
DATE: 02/12/2017 SUBJECTIVE: Today Ms. Cottrell refers to be doing a little better. Continues to have significant pain on mobilization of the left leg. The daughter was at the bedside and she did not also have any concerns. OBJECTIVE: Vitals: Blood pressure is 153/71, pulse is 88, respiration 14, temperature 98.5 degrees. General: Ms. Cottrell 86-year-old female she was in bed. Did not seems to be in any remarkable distress. HEENT: Mucosa is pink and moist. Anicteric. Acyanotic. Neck: Supple. Chest: Was clear. Cardiovascular: Regular rate and rhythm. There is no murmurs, no rubs, no gallops. Abdomen: Soft. Extremities: There is maybe a trace of pedal edema. The left leg is externally rotated and is tender with mobilization. LABORATORY DATA: WBC is 10.59, hemoglobin is 12.3, platelet count of 317,000. Chemistry is reviewed, unremarkable. TSH is 4.44. Patient is already on levothyroxine. ASSESSMENT: 1. Status post fall with left hip femoral neck fracture. Patient has been evaluated by Dr. Weiner and there is a plan to intervene surgically tomorrow. 2. Clinical dehydration. Will continue with gentle hydration. 3. Hypothyroidism. Will continue with the current dose of the levothyroxine. 4. Mild trauma to the head. CT scan did not show any acute disease. 5. Anticoagulation on Eliquis. This has been withheld because of the surgery. 6. Paroxysmal atrial fibrillation on apixaban anticoagulation noted. In general I think Ms Cottrell is relatively stable. Her hydration status is improving. So far apixaban has been withheld with anticipation of surgery tomorrow. cc: Obie Rosas MD
[2017-02-13] MEDS: SYNTHROID PO SCH ×2 (05:30→06:33)
[2017-02-13] MEDS: NS 1,000 ML IV SCH ×2 (05:30→19:07)
[2017-02-13 06:08] LABS: MANUAL DIFF NEEDED? NO
[2017-02-13 06:23] LABS: BASO% 0.1 % (0.0-0.8); EOS# 0.24 X1000 (0.0-0.7); EOS% 2.2 % (0.0-10.0); HEMATOCRIT 36.8 % (37.0-47.0); IMM GRAN# 0.04 X1000 (0.0-0.04); IMM GRAN% 0.4 % (0.0-0.5); LYMPH# 2.15 X1000 (1.2-3.4); LYMPH% 19.5 % (20.5-51.1); MCH 29.9 PG (27-31); MCHC 32.6 g/dL (33-37); MCV 91.8 FL (81-99); MONO# 1.58 X1000 (0.11-0.59); MONO% 14.4 % (1.7-9.3); MPV 8.8 FL (7.4-10.4); NEUT% 63.4 % (42.2-75.2); PLT 316 X1000 (130-400); RBC 4.01 XMIL (4.2-5.4)
[2017-02-13 06:33] LABS: AGAP 13; BUN 11 mg/dL (8-22); CALCIUM 8.5 mg/dL (8.8-10.2); CHLORIDE 103 mmol/L (98-107); COSMO 272; POTASSIUM 3.7 mmol/L (3.5-5.1); SODIUM 137 mmol/L (136-145); TCO2 21 mmol/L (25-35)
[2017-02-13] MEDS: PRILOSEC PO SCH (06:33)
[2017-02-13] MEDS: ARICEPT PO SCH (08:08)
[2017-02-13] MEDS: VESICARE PO SCH (08:08)
--- NOTE | 2017-02-13 08:16 | PROGRESS NOTE ---
DATE: 02/13/2017 SUBJECTIVE: Ms. Cottrell is lying in bed this morning. Pain seems under control. OBJECTIVE: Left lower extremity exam still shows some tenderness to palpation of the left hip. She is still able to move her toes up and down very well. ASSESSMENT: Left femoral neck fracture displaced. PLAN: Will plan on surgical intervention for Ms. Cottrell today. She is NPO. We will plan on getting this done around [facility] today. cc: Akira Weiner MD
[2017-02-13] MEDS: MEGACE LIQUID PO SCH (08:23)
[2017-02-13] MEDS: NAMENDA XR PO SCH (08:23)
[2017-02-13] MEDS: CARAFATE LIQUID PO SCH ×3 (08:23→16:45)
[2017-02-13] MEDS: CULTURELLE PO SCH (08:25)
[2017-02-13] MEDS: MIRALAX PO SCH (08:25)
[2017-02-13] MEDS: COLACE PO SCH ×2 (08:26→22:42)
[2017-02-13] MEDS: CARDIZEM CD PO SCH (08:33)
[2017-02-13] MEDS: BETAPACE PO SCH ×2 (08:33→22:39)
[2017-02-13] MEDS ORDERED: NEOSPORIN G.U. IRRIGANT ONE ×2 (10:17→10:18)
[2017-02-13] MEDS ORDERED: KEFZOL 1 GM/D5W 1 GM/50 ML IVPB ONE (11:45)
[2017-02-13] MEDS ORDERED: CLAVE SECONDARY SET 11953 ONE (11:45)
--- NOTE | 2017-02-13 12:28 | PROGRESS NOTE ---
DATE: 02/11/2017 SUBJECTIVE: Today Ms. Cottrell refers to be doing a little better. She denies any chest pain when I went to see her; however, early on, according to the nurses, she did complain of some chest discomfort. No abdominal pain either. She does complain of mild pain to the left hip. OBJECTIVE: Vital signs: Blood pressure is 156/71, pulse of 95. Respiration is 15. Temperature is 98.4. General exam: Ms. Cottrell is an 86-year-old female. She is in bed. No distress. Mucosa is pink, slightly dry. Anicteric and acyanotic. Neck: Supple. Chest: Good air entry bilaterally. No crepitations. Cardiovascular: Irregularly irregular heart rate but rate controlled. No murmurs, no rubs, no gallops. Abdomen: Soft, nontender. Central nervous system: Patient is alert, follows some commands. Disoriented to time and to the date, but she knows where she is. She knows her name. She is able to recognize her daughter by the bedside. LABORATORY DATA: WBC is 11.0. Hemoglobin is 12.0, platelet count of 316. Chemistry is reviewed, completely normal. ASSESSMENT: 1. Status post fall with left hip femoral neck fracture. Patient is pending surgery today. 2. Clinical dehydration. We will continue with gentle IV fluids. 3. Hypothyroidism. We will continue supplements. 4. Chronic atrial fibrillation, on apixaban anticoagulation. This has been withheld because of the surgery. We will restart it once hemostasis has been achieved. 5. Constipation, which we will start to address more symptomatically once after the surgery. PLAN: In general, Ms. Cottrell is doing fine. She is pending a surgery today. She is a resident of [facility], so once surgery is done and she is clinically stable, we will be able to transfer her back to [facility]. Patient does have some constipation. cc: Obie Rosas MD
[2017-02-13] MEDS ORDERED: MORPHINE ONE (13:50)
[2017-02-13] MEDS ORDERED: DIPRIVAN 1% ONE (13:51)
[2017-02-13] MEDS ORDERED: ZOFRAN ONE (14:04)
[2017-02-13] MEDS ORDERED: XYLOCAINE-MPF 2% ONE (14:04)
[2017-02-13] MEDS ORDERED: EPHEDRINE ONE (14:04)
[2017-02-13] MEDS ORDERED: EXTENSION SET 32 IN 4522 ONE (14:05)
[2017-02-13] MEDS ORDERED: OFIRMEV 1000 MG/ISOTONIC SOLN 1,000 MG/100 ML BOTTLE ONE (14:05)
[2017-02-13] MEDS ORDERED: ANESTHESIA PB SET 88 IN 5742 ONE (14:05)
[2017-02-13] MEDS ORDERED: LR 1,000 ML ONE (14:05)
[2017-02-13] MEDS ORDERED: ZOFRAN IV PRN (15:46)
[2017-02-13] MEDS ORDERED: MILK OF MAGNESIA PO PRN (15:46)
[2017-02-13] MEDS ORDERED: MORPHINE IV PRN (15:46)
[2017-02-13] MEDS ORDERED: OXY IR PO PRN (15:46)
[2017-02-13] MEDS ORDERED: HALDOL IV PRN (15:46)
[2017-02-13] MEDS ORDERED: TYLENOL PO SCH (16:00)
--- NOTE | 2017-02-13 17:38 | OPERATIVE NOTE ---
PROCEDURE DATE: 02/13/2017 PREOPERATIVE DIAGNOSIS: Left femoral neck fracture displaced. POSTOPERATIVE DIAGNOSIS: Left femoral neck fracture displaced. PROCEDURE: Left hip hemiarthroplasty. SURGEON: Akira Weiner MD DIRECTOR OPERATIONS BROADCAST: MILIND Cates ANESTHESIA: General with LMA. BLOOD LOSS: About 100 mL. IMPLANTS: DePuy Corail stem size 12, 46 head. DISPOSITION: To PACU, hemodynamically stable. INDICATION FOR PROCEDURE: Ms Cottrell, an 86-year-old female who presented to the emergency department Sunday evening on 02/11/2017. She was found to have a hip fracture. She was admitted per the hospitalist service. Her Eliquis was stopped for surgery. We waited over 24 hours for the Eliquis to begin to get out of the system and we set her up for surgery today. I went over with her and her family about the procedure, risks, benefits, and potential complications. Risks include, but are not limited to, infection, wound healing problems, damage to nerves, arteries, veins, numbness, hardware related issues, continued pain, DVT, and anesthesia related risks. After discussing these with the patient and her family member, they all expressed understanding and wished to proceed. DESCRIPTION OF PROCEDURE: Ms Cottrell was identified in the preoperative holding area. Her family members at bedside and confirmed that it was the left hip, which was marked. She was then wheeled to the operating room, placed supine on the operating table. All bony prominences well padded. She was induced under general anesthesia. LMA was placed. She was then flipped to the right lateral decubitus position. Axillary roll was placed and all bony prominences were checked and well padded. Left lower extremity was then prepped with ChloraPrep, and draped in normal sterile fashion. Surgical pause was performed. We identified the correct patient, the correct side, and the correct procedure. Preop antibiotics were given, which was IV Ancef. I started with a standard posterior approach to the hip. Dissection was carried down to the fascia, which was divided. With found the short external rotators and we released the short external rotators. I then came down onto the capsule, I T'd the capsule, and then came down right onto the fracture site. I freshened up the neck cut and then used a rongeur to get those bone fragments out and then used a corkscrew, got the head out and measured it to a 46. We trialed with a 46 and that seemed to fit really well. We then sequentially broached to a size 12 and that actually fit really well. So we trialed the size 12 and everything went in well. Her lengths felt good, her stability was great. So we took those out and irrigated everything copiously with normal saline. I then put a size 12 Corail stem in and had a very good press fit. I then put the head on, reduced it. She had excellent stability in flexion and internal rotation and in extension and flexion of the knee. I then closed the capsule with 0 Vicryl, 0 Vicryl for the short external rotators including the piriformis, then 0 Vicryl for the deep fascia, 2-0 Vicryl for the subcutaneous, and sandra on the skin. Island dressing was then placed. The patient was then awoken from general anesthesia, moved to her own bed and taken to the PACU in stable condition. Postoperatively, patient will be weight bear as tolerated left lower extremity and I will see her in the morning. She will continue on her Eliquis and we will do 3 doses of IV Ancef. cc: Akira Weiner MD
[2017-02-13] MEDS: NORCO-7.5 PO PRN ×2 (18:24→22:40)
[2017-02-13] MEDS: KEFZOL 1 GM/D5W 1 GM/50 ML IVPB IV SCH (19:07)
[2017-02-13] MEDS: PRAVACHOL PO SCH (22:40)
[2017-02-13] MEDS: TYLENOL PO SCH (22:41)
[2017-02-13] MEDS: PERIDEX MT SCH (22:41)
[2017-02-14] MEDS: KEFZOL 1 GM/D5W 1 GM/50 ML IVPB IV SCH (04:30)
[2017-02-14 05:50] LABS: HEMATOCRIT 33.7 % (37.0-47.0); HEMOGLOBIN 10.6 g/dL (12.0-16.0)
[2017-02-14 06:03] LABS: AGAP 13; BUN 8 mg/dL (8-22); CALCIUM 7.9 mg/dL (8.8-10.2); CHLORIDE 104 mmol/L (98-107); COSMO 273; POTASSIUM 3.8 mmol/L (3.5-5.1); SODIUM 138 mmol/L (136-145); TCO2 21 mmol/L (25-35)
[2017-02-14] MEDS: LOVENOX SUBQ SCH (06:06)
[2017-02-14] MEDS: TYLENOL PO SCH ×3 (06:07→20:39)
[2017-02-14] MEDS: SYNTHROID PO SCH (06:07)
[2017-02-14] MEDS: NS 1,000 ML IV SCH ×2 (06:07→17:53)
[2017-02-14] MEDS: PRILOSEC PO SCH (06:07)
--- NOTE | 2017-02-14 07:33 | PROGRESS NOTE ---
DATE: 02/14/2017 SUBJECTIVE: Ms. Cottrell is lying in bed, resting this morning. Not really complaining of a lot of pain this morning. OBJECTIVE: Left lower extremity exam, dressing is clean, dry, and intact. She has good dorsiflexion and plantar flexion of the foot. Good sensation to light touch to the foot as well. ASSESSMENT: Status post left hip hemiarthroplasty. PLAN: I am okay with Ms. Cottrell being weight bear as tolerated left lower extremity. Physical therapy to start working with her today and our social insurance adviser team should be seeing her today to get everything set up for rehab. cc: Akira Weiner MD
--- NOTE | 2017-02-14 08:18 | Diag Imaging Result Document ---
PROCEDURE NAME: PELVIS - 02/14/2017 PORTABLE PELVIS: COMPARISON: 02/11/2017. FINDINGS: Interval replacement of the left hip. The femoral head component is well positioned in the acetabular component. There are lateral skin sandra. IMPRESSION: Recent orthopaedic surgery with replacement of the left hip.
[2017-02-14] MEDS: CARAFATE LIQUID PO SCH ×3 (09:06→18:10)
[2017-02-14] MEDS: CULTURELLE PO SCH (09:06)
[2017-02-14] MEDS: VESICARE PO SCH (09:06)
[2017-02-14] MEDS: CARDIZEM CD PO SCH (09:06)
[2017-02-14] MEDS: BETAPACE PO SCH ×2 (09:07→20:39)
[2017-02-14] MEDS: NORCO-7.5 PO PRN ×2 (09:08→17:53)
[2017-02-14] MEDS: MEGACE LIQUID PO SCH (09:08)
[2017-02-14] MEDS: FERROUS SULFATE PO SCH (09:08)
[2017-02-14] MEDS: NAMENDA XR PO SCH (09:08)
[2017-02-14] MEDS: ARICEPT PO SCH (09:08)
[2017-02-14] MEDS: MIRALAX PO SCH (09:09)
[2017-02-14] MEDS: PERIDEX MT SCH ×3 (09:09→20:44)
[2017-02-14] MEDS ORDERED: NS 500 ML ONE (11:05)
[2017-02-14] MEDS ORDERED: COMPAZINE IV PRN (13:16)
--- NOTE | 2017-02-14 16:48 | PROGRESS NOTE ---
DATE: 02/14/2017 SUBJECTIVE: Today Ms. Cottrell refers to be doing fine. She had a surgery done yesterday. OBJECTIVE: Vital signs: Blood pressure is 121/59, pulse of 88, respiration is 16, temperature is 98.0 degrees. General: Ms. Cottrell is an 86-year-old female. She was in bed, not seeming in any distress. HEENT: Mucosa is slightly dry. Anicteric. Acyanotic. Neck: Supple. Chest: Good air entry bilaterally. No crepitations. No rhonchi. Cardiovascular: Irregularly irregular but rate controlled. No murmurs, no rubs. No gallops. Abdomen: Soft, nontender. Bowel sounds are present. VP TRAINING: Patient is sleepy but is easily arousable. Follows commands. Extremities: The left is externally rotated. There is a board in between the 2 legs, I think from Orthopedics to keep the hip stabilized. LABORATORY DATA: Hemoglobin is 10.6. Chemistries reviewed, completely unremarkable. ASSESSMENT: 1. Status post fall with left hip femoral neck fracture. The patient had a left nicolasa arthroplasty done yesterday by Dr. Weiner. Per his progress note today patient is okay to have physical therapy. We will therefore notify Social Work and start arrangement for patient rehab possibly tomorrow. 2. Dehydration. This is gradually improving. 3. Hypothyroidism. We will continue with Synthroid. 4. Chronic atrial fibrillation. The patient is on apixaban. We will restart her anticoagulation. 5. Constipation. Improving. 6. Mild hypocalcemia. We will go ahead and check on her vitamin D level to make sure it is not low. If it is low we will supplement this to help with her general physical rehabilitation as well as her muscle strength. cc: Obie Rosas MD
[2017-02-14] MEDS: COLACE PO SCH (20:39)
[2017-02-14] MEDS: PRAVACHOL PO SCH (20:40)
[2017-02-15] MEDS: NORCO-7.5 PO PRN ×2 (01:01→14:19)
[2017-02-15] MEDS ORDERED: BENADRYL CREAM TOP PRN (01:14)
[2017-02-15 05:34] LABS: MANUAL DIFF NEEDED? NO
[2017-02-15 05:39] LABS: BASO% 0.1 % (0.0-0.8); EOS# 0.13 X1000 (0.0-0.7); HEMATOCRIT 29.4 % (37.0-47.0); HEMOGLOBIN 9.9 g/dL (12.0-16.0); IMM GRAN# 0.08 X1000 (0.0-0.04); IMM GRAN% 0.6 % (0.0-0.5); LYMPH# 2.29 X1000 (1.2-3.4); LYMPH% 17.4 % (20.5-51.1); MCH 30.7 PG (27-31); MCHC 33.7 g/dL (33-37); MONO# 2.23 X1000 (0.11-0.59); MONO% 16.9 % (1.7-9.3); MPV 9.1 FL (7.4-10.4); PLT 273 X1000 (130-400); RBC 3.23 XMIL (4.2-5.4)
[2017-02-15 05:59] LABS: AGAP 9; BUN 10 mg/dL (8-22); CALCIUM 7.8 mg/dL (8.8-10.2); CHLORIDE 107 mmol/L (98-107); COSMO 273; SODIUM 137 mmol/L (136-145); TCO2 21 mmol/L (25-35)
[2017-02-15] MEDS: LOVENOX SUBQ SCH (06:00)
[2017-02-15] MEDS: PRILOSEC PO SCH (06:01)
[2017-02-15] MEDS: NS 1,000 ML IV SCH (06:01)
[2017-02-15] MEDS: SYNTHROID PO SCH (06:01)
[2017-02-15] MEDS: TYLENOL PO SCH ×2 (08:13→13:38)
[2017-02-15] MEDS: MEGACE LIQUID PO SCH (08:41)
[2017-02-15] MEDS: VESICARE PO SCH (08:42)
[2017-02-15] MEDS: NAMENDA XR PO SCH (08:42)
[2017-02-15] MEDS: PERIDEX MT SCH ×2 (08:43→09:00)
[2017-02-15] MEDS: ARICEPT PO SCH (08:43)
[2017-02-15] MEDS: MIRALAX PO SCH (08:43)
[2017-02-15] MEDS: CULTURELLE PO SCH (08:43)
[2017-02-15] MEDS: FERROUS SULFATE PO SCH (08:43)
[2017-02-15] MEDS: CARDIZEM CD PO SCH (08:45)
[2017-02-15] MEDS: BETAPACE PO SCH (08:45)
[2017-02-15] MEDS: CARAFATE LIQUID PO SCH ×2 (08:58→13:38)
[2017-02-15] MEDS ORDERED: VITAMIN D PO SCH (09:00)
--- NOTE | 2017-02-15 09:07 | PROGRESS NOTE ---
DATE: 02/15/2017 SUBJECTIVE: Ms. Cottrell is lying in bed this morning feeling okay overall. She is postop day 2 from left hip hemiarthroplasty. OBJECTIVE: Left lower extremity exam: Dressing is clean, dry, and intact. She can move her toes up and down very well. She has good sensation light touch to the toes. ASSESSMENT: Status post left hip hemiarthroplasty. PLAN: Ms. Cottrell will be weight bear as tolerated left lower extremity. Fiscal Manager team is working on getting her placement. She will continue with therapy here. cc: Akira Weiner MD
--- NOTE | 2017-02-15 11:19 | DISCHARGE SUMMARY ---
ADMISSION DATE: 02/11/2017 DISCHARGE DATE: 02/15/2017 CONSULTATIONS: Dr. Akira Weiner with Orthopedics. PERTINENT PROCEDURES: 1. Head CT showed no acute disease or change from prior. 2. Hip pelvis x-ray showed left femoral neck fracture. 3. Left hip hemiarthroplasty. DISCHARGE DIAGNOSES: 1. Status post fall with left hip femoral fracture with a left humeral arthroplasty performed by Dr. Weiner. Patient worked with physical therapy. She is weightbearing as tolerated to her left lower extremity. Patient is a long-term resident of [facility] and will return there today. 2. Dehydration, improved. 3. Hypothyroidism. Continue Synthroid. 4. Chronic atrial fibrillation. Continue with Eliquis. 5. Constipation improving. 6. Mild hypocalcemia. HOSPITAL COURSE: Ms. Cottrell is an 86-year-old, female with a history of dementia, hypothyroidism, chronic atrial fibrillation on Eliquis, recurrent C. difficile colitis. The patient has been in [facility] since October of this year. She was there for rehab for 2 months with no improvement. She was transitioned to long-term care. The patient was feeling fine the day of her admission. She was in a wheelchair. She had reached out for a magazine which was on the floor. She fell out of the wheelchair, hit her forehead and sustained an injury to her left hip. The patient was unable to help herself to get up. She was assisted [facility] the staff [facility] the [facility] and put back in the wheelchair. She was sent back to her room. She continued to complain of pain in the left hip. An x-ray was done that confirmed a fracture. She was brought in and evaluated. She underwent a left hip hemiarthroplasty by Dr. Weiner for a femoral neck fracture. She was also clinically dehydrated. She was gently hydrated with IV fluids. Patient has worked with physical therapy. She is appropriate for discharge back to [facility] today. Vital signs, temp is 98.2 degrees, heart rate 72, respirations 16, blood pressure 126/58, O2 is 98% on room air. DISCHARGE DIET: Mechanical soft. DISCHARGE MEDICATIONS: As per Dr. Rosas. Please see MAR. FOLLOWUP: Patient is being discharged back to [facility]. She will need to follow up with Dr. Weiner in 2-3 weeks. Patient to return to the ED for any worsening of symptoms. DISCHARGE TIME: 30 minutes. Dictated by ALEXANDER King for Obie Rosas MD cc: Obie Rosas MD
[2017-02-15 11:38] VITALS: BP 114/47
--- NOTE | 2017-02-20 03:14 | PROVIDER DOCUMENTATION ---
This chart was entered by Ana Bucio Scribe, acting as scribe for Satinder Mann MD. HPI-Musculoskeletal Pain/Inj - GENERAL Chief Complaint: Hip Injury Stated Complaint: HIP FX Time Seen by Provider: 02/11/17 16:42 Source: patient - HX OF PRESENT ILLNESS-MUSKULOSKELTAL Nature of Presenting Problem: Pt is 86 y/o F presents to the ED with L hip pain. EMS states Pt fell out of chair at custodial yesterday. Pt states pain today. Quality of Pain: reports: aching Severity in ED: moderate Onset/Duration: 24 hours ago Timing: still present Modifying Factors: improves with: nothing Any recent injury?: Yes (fall ) Locality of Occurance: Home Similar Symptoms Previously?: Yes Recently seen or treated by another doctor?: No - FALL INJURY Location of Pain/Injury: reports: lower extremity (L hip pain) Pain Radiation: reports: no radiation Reason for Fall: reports: slipped Symptoms prior to fall:: reports: none Loss of Consciousness: no loss of consciousness Injury Associated Symptoms: denies: arm pain, back/neck pain, chest pain, diaphoresis, dizziness, headaches, joint pain, muscle aches, nausea, puncture wound, shortness of breath, sensory/motor loss, snap/crack/pop sensation, pain with inspiration, unable to bear weight, vomiting, weakness, trouble walking - HIP/PELVIS PAIN/INJURY Hip Pain Location: reports: hip (L) Pain Radiation: reports: no radiation Context / Method of Injury: reports: fall Associated Symptoms: reports: weakness in legs/feet (L hip). denies: loss of bladder control, loss of bowel control, lower back pain, muscle spasms, numbness in legs/feet, sensory/motor loss, tingling in legs/feet Review of Systems - Adult - REVIEW OF SYSTEMS - ADULT Constitutional: reports: no symptoms reported Eyes: reports: no symptoms reported Ears, Nose, Mouth & Throat: reports: no symptoms reported Cardiovascular: reports: no symptoms reported Respiratory: reports: no symptoms reported Gastrointestinal: reports: no symptoms reported Genitourinary: reports: no symptoms reported Musculoskeletal: reports: other (L hip pain). denies: bone pain, joint pain, neck pain Integumentary: reports: other (bruise to L confucianist). denies: hives, itching Neurological: reports: no symptoms reported Psychiatric: reports: no symptoms reported Endocrine: reports: no symptoms reported Hematologic/Lymphatic: reports: no symptoms reported Allergic/Immunologic: reports: no symptoms reported All Other Systems: Reviewed and Negative Past History - Adult - PAST MEDICAL HISTORY-ADULT Review of Records: reports: Nursing Assessment Review, Medications Reviewed, Social history reviewed & non-contributory. Major Childhood Illnesses: reports: denies history Cardiovascular: reports: A-Fib, HTN, hyperlipidemia Respiratory: reports: denies history Gastrointestinal: reports: GERD Obstetrical/Gynecological: reports: denies history Genitourinary: reports: denies history Musculoskeletal: reports: denies history Neurological: reports: CVA, stroke deficits (left arm weakness, left leg weakness), dementia. denies: headaches/migraines Endocrine/Immune: reports: thyroid disorder Other Conditions: reports: denies history - PRIOR SURGERIES/PROCEDURES Surgical/Procedure History: reports: appendectomy, cholecystectomy, hysterectomy , orthopedic (extremity) - PRIOR HOSPITALIZATIONS Prior Hospitalizations: reports: for other non-related - IMMUNIZATION STATUS Childhood Immunizations: See Nurse Assessment Flu Vaccine: See Nurse Assessment - FAMILY HISTORY Family History: reviewed, not pertinent, gallbladder disease - SOCIAL HISTORY Smoking: denies Substance Use: denies Living Situation: family Physical Exam-Injury Related - Physical Exam-Injury Related Initial Vital Signs Reviewed: Yes General Appearance: appears well, alert, moderate distress Eyes: PERRL/EOMI, pink conjunctivae Head, Ears, Nose, Mouth & Throat: normocephalic/atraumatic, moist mucous membranes, normal ENT inspection, TMs normal, pharynx normal Neck: non-tender, full range of motion, supple, normal inspection Respiratory: chest non-tender, lungs clear, normal breath sounds, no pleuratic chest pain, no respiratory distress, no accessory muscle use Cardiovascular: normal peripheral pulses, regular rate, rhythm, no edema, no gallop, no JVD, no murmur Abdominal Exam: normal bowel sounds, non tender, soft, no organomegaly, no pulsatile mass Lymphatic: no adenopathy Back Exam: normal inspection, no CVA tenderness, no vertebral tenderness Extremity: no pedal edema, tenderness (L hip), other (painful ROM to L leg). negative: normal gait, normal inspection Integumentary: normal color, warm/dry, ecchymosis (to L confucianist) Neurologic: grossly normal Psych/Mental Status: normal mood/affect Progress - PLAN OF CARE/RESULTS Progress/Plan/Lab Results: Orders Category Date Time Status Admit - [facility] Routine AdmDCTranf 02/11/17 18:41 Ordered Activity - Up with Assistance ORDERED Care 02/11/17 18:41 Completed Apply Mechanical Device [QM] ORDERED Care 02/11/17 18:41 Completed Intake and Output-Strict ORDERED Care 02/11/17 18:41 Completed Vital Signs Order Q 8-HR ASSESS Care 02/11/17 18:41 Completed CHEST-1 VIEW [RAD] Stat Exams 02/11/17 17:38 Completed HEAD W/O CONTRAST [CT] Stat Exams 02/11/17 18:29 Completed XRAY PELVIS W/HIP 2-3VW LT [RAD] Stat Exams 02/11/17 16:42 Completed CBC WITH DIFF [HEME] Routine Lab 02/12/17 05:15 Completed CBC WITH DIFF [HEME] Stat Lab 02/11/17 16:45 Completed CMP [COMPREHENSIVE METABOLIC PANEL] [CHEM] Stat Lab 02/11/17 16:45 Completed COMPREHENSIVE METABOLIC PANEL [CHEM] Routine Lab 02/12/17 05:15 Completed MAGNESIUM [CHEM] Routine Lab 02/12/17 05:15 Completed PROTIME WITH INR [COAG] Routine Lab 02/12/17 05:15 Completed PROTIME WITH INR [COAG] Stat Lab 02/11/17 17:50 Completed TSH Routine Lab 02/12/17 05:15 Completed UA NIMS W/REFLEX CULT [URINALYSIS] Stat Lab 02/11/17 18:56 Completed 0.9% Sodium Chloride Inj [Ns] 1,000 ml Med 02/11/17 18:41 Discontinued IV 85 mls/hr Diltiazem C.d. [Cardizem Cd] Med 02/12/17 09:00 Discontinued 180 mg PO DAILY Docusate Sodium [Colace] Med 02/12/17 09:00 Discontinued 100 mg PO DAILY Donepezil [Aricept] Med 02/12/17 09:00 Discontinued 10 mg PO DAILY Hydrocodone/APAP 7.5 mg/325 mg [Grant-7.5] Med 02/11/17 18:41 Discontinued See Dose Instructions PO Q4H PRN Lactobacillus Rhamnosus GG [Culturelle] Med 02/12/17 09:00 Discontinued 1 each PO DAILY Levothyroxine [Synthroid] Med 02/12/17 07:00 Discontinued 50 microgm PO DAILY@0700 Megestrol Acetate [Megace Liquid] Med 02/12/17 09:00 Discontinued 400 mg PO DAILY Memantine Xr [Namenda Xr] Med 02/12/17 09:00 Discontinued 28 mg PO DAILY Omeprazole [Prilosec] Med 02/12/17 07:00 Discontinued 20 mg PO DAILY@0700 PRAVAstatin [Pravachol] Med 02/11/17 21:00 Discontinued 80 mg PO QHS Polyethylene Glycol 3350 [Miralax] Med 02/12/17 09:00 Discontinued 17 gm PO DAILY Solifenacin [Vesicare] Med 02/12/17 09:00 Discontinued 10 mg PO DAILY Sotalol [Betapace] Med 02/11/17 21:00 Discontinued 40 mg PO BID Sucralfate [Carafate Liquid] Med 02/12/17 09:00 Discontinued 1 gm PO TID Telemetry [OM.EQ] Routine Oth 02/11/17 18:41 Active EKG [EKG] Stat Ther 02/11/17 16:33 Draft Physical Therapy Eval/Treatment [OM.PT] Routine Ther 02/11/17 18:41 Active Transfer/Admit Order [TRANSFER] Routine Transfer 02/11/17 18:48 Completed Result Diagrams: 02/15/17 05:16 02/15/17 05:16 - EKG 1 Time of EKG reading by physician:: 16:29 EKG Read and Signed by:: Satinder Mann EKG Interpretation (*Must complete 3 of following elements*): Abnormal Rate: 67 Rhythm: normal sinus rhythm Comments: nonspecific ST and T wave abnormality - XRAY 1 XRAY: Left XRAY Study: Pelvis, Hip Impression: Abnormal XRAY Interpretation: left fem neck fracture - CHANGE OF SHIFT REPORT (ED Provider) Report Given and Care Transferred to:: Dr. Lynch Time of Transfer: 17:51 Items Pending: Physician Consult/Arrival Departure - Departure Time of Disposition Decision: 03:13 DIAGNOSIS: Hip fracture Disposition: ADMITTED INPATIENT 09 Certified Medical Emergency: Emergent Condition: Stable - Critical Care Note This patient required my direct & personal management of CC.: Yes This chart was documented by the indicated scribe, (Ana Bucio, Ángel) and accurately reflects the services I performed and decisions made by , Satinder Mann MD, as attested by the provider's signature.
== END 2017-02-15 14:32 ==
LOC: ED 16:06 → SUATTDRO 19:31 → 4N 19:31
PROVIDERS: ATTEND Internal Medicine